=== PATIENT | male | born 1950 | race Caucasian/White ===

== ENCOUNTER → 2020-04-29 13:37 | Outpatient (BNVA) | payer OTHER, SELFPAY | PROVIDERS: PCP Nurse Practitioner Family; Visit Provider Anesthesiology | DX: Z76.89 Persons encountering health services in other specified circumstances (principal) ==

== ENCOUNTER → 2020-06-02 13:50 | Outpatient (BNVA) | payer OTHER, SELFPAY | PROVIDERS: PCP Nurse Practitioner Family; Visit Provider Anesthesiology | DX: Z76.89 Persons encountering health services in other specified circumstances (principal) ==

== ENCOUNTER → 2020-06-21 11:38 | Outpatient (BNVA) | payer OTHER, SELFPAY | PROVIDERS: PCP Internal Medicine; Visit Provider Anesthesiology | DX: Z76.89 Persons encountering health services in other specified circumstances (principal) ==

== ENCOUNTER → 2020-07-21 15:05 | Outpatient (BNVA) | payer OTHER, SELFPAY | PROVIDERS: PCP Internal Medicine; Visit Provider Anesthesiology | DX: Z76.89 Persons encountering health services in other specified circumstances (principal) ==

== ENCOUNTER → 2020-08-19 15:34 | Outpatient (BNVA) | payer OTHER, SELFPAY | PROVIDERS: PCP Internal Medicine; Visit Provider Anesthesiology ==

== ENCOUNTER → 2020-09-09 14:31 | Outpatient (BNVA) | payer OTHER, SELFPAY | PROVIDERS: PCP Internal Medicine; Visit Provider Anesthesiology ==

== ENCOUNTER → 2020-09-29 08:04 | Outpatient (BNVA) | payer OTHER, SELFPAY | PROVIDERS: PCP Internal Medicine; Visit Provider Anesthesiology ==

== ENCOUNTER → 2020-10-14 08:03 | Outpatient (BNVA) | payer OTHER, SELFPAY | PROVIDERS: PCP Internal Medicine; Visit Provider Anesthesiology ==

== ENCOUNTER → 2020-11-11 08:19 | Outpatient (BNVA) | payer OTHER, SELFPAY | PROVIDERS: PCP Internal Medicine; Visit Provider Anesthesiology ==

== ENCOUNTER → 2020-12-09 08:35 | Outpatient (BNVA) | payer OTHER, SELFPAY | PROVIDERS: PCP Internal Medicine; Visit Provider Anesthesiology ==

== ENCOUNTER → 2021-01-05 09:44 | Outpatient (BNVA) | payer OTHER, SELFPAY | PROVIDERS: PCP Internal Medicine; Visit Provider Nurse Practitioner Family ==

== ENCOUNTER → 2021-02-03 09:15 | Outpatient (BNVA) | payer OTHER, SELFPAY | PROVIDERS: PCP Internal Medicine; Visit Provider Anesthesiology ==

== ENCOUNTER → 2021-02-28 10:00 | Outpatient (BNVA) | payer OTHER, SELFPAY | PROVIDERS: PCP Internal Medicine; Visit Provider Anesthesiology ==

== ENCOUNTER → 2021-03-28 09:24 | Outpatient (BNVA) | payer OTHER, SELFPAY | PROVIDERS: PCP Internal Medicine; Visit Provider Anesthesiology ==

== ENCOUNTER → 2021-04-25 08:18 | Outpatient (BNVA) | payer OTHER, SELFPAY | PROVIDERS: PCP Internal Medicine; Visit Provider Anesthesiology ==

== ENCOUNTER → 2021-05-24 08:20 | Outpatient (BNVA) | payer OTHER, SELFPAY | PROVIDERS: PCP Internal Medicine; Visit Provider Anesthesiology ==

== ENCOUNTER → 2021-06-20 08:38 | Outpatient (BNVA) | payer OTHER, SELFPAY | PROVIDERS: PCP Internal Medicine; Visit Provider Anesthesiology ==

== ENCOUNTER → 2021-07-18 08:20 | Outpatient (BNVA) | payer OTHER, SELFPAY | PROVIDERS: PCP Internal Medicine; Visit Provider Anesthesiology ==

== ENCOUNTER → 2021-08-22 08:31 | Outpatient (BNVA) | payer OTHER, SELFPAY | PROVIDERS: PCP Internal Medicine; Visit Provider Anesthesiology ==

== ENCOUNTER → 2021-09-21 09:05 | Outpatient (BNVA) | payer OTHER, SELFPAY | PROVIDERS: PCP Internal Medicine; Visit Provider Anesthesiology ==

== ENCOUNTER → 2021-10-24 08:47 | Outpatient (BNVA) | payer OTHER, SELFPAY | PROVIDERS: PCP Internal Medicine; Visit Provider Anesthesiology | DX: M96.1 Postlaminectomy syndrome, not elsewhere classified (principal); G89.4 Chronic pain syndrome; F11.90 Opioid use, unspecified, uncomplicated | CPT/HCPCS: 99212 ==

== ENCOUNTER → 2021-11-15 09:18 | Outpatient (BNVA) | payer OTHER, SELFPAY | PROVIDERS: PCP Internal Medicine; Visit Provider Anesthesiology | DX: Z13.89 Encounter for screening for other disorder (principal) ==

== ENCOUNTER → 2021-12-14 10:04 | Outpatient (BNVA) | payer OTHER, SELFPAY | PROVIDERS: PCP Internal Medicine; Visit Provider Anesthesiology | DX: Z13.89 Encounter for screening for other disorder (principal) ==

== ENCOUNTER → 2022-01-11 09:52 | Outpatient (BNVA) | payer OTHER, SELFPAY | PROVIDERS: PCP Internal Medicine; Visit Provider Anesthesiology | DX: Z51.81 Encounter for therapeutic drug level monitoring (principal); F11.20 Opioid dependence, uncomplicated | CPT/HCPCS: 99211 ==

== ENCOUNTER 2022-01-13 10:00 | Outpatient (RCR) | payer OTHER, SELFPAY ==
[2021-11-01 07:00] VITALS: BP 138/82; PULSE 60; O2SAT 97
== END 2022-02-16 15:17 | disposition home or self-care (01) ==
LOC: HO.PTWFD 10:00
PROVIDERS: PCP Internal Medicine; Visit Provider Anesthesiology
DX: M72.2 Plantar fascial fibromatosis (principal); M96.1 Postlaminectomy syndrome, not elsewhere classified
CPT/HCPCS: 97035; 97110; 97140; 97161; 97162; 97535

== ENCOUNTER 2022-04-20 10:15 | Outpatient (REF) | payer OTHER, SELFPAY ==
--- NOTE | ~2022-04-20 | XR_ITS ---
EXAMINATION: XR LUMBAR SPINE XR PELVIS CLINICAL INFORMATION: Post laminectomy syndrome. Sacroiliitis. COMPARISON: None available TECHNIQUE: 5 views of the lumbar spine. AP radiograph of the pelvis. FINDINGS: Normal alignment and lumbar lordosis with ozwl-yf-jcdykbnl multilevel degenerative disc disease. Multilevel facet arthrosis. Disc space narrowing and facet arthropathy is most prominent at L5-S1. No fracture. No spondylolysis or spondylolisthesis. Moderate left and mild right hip osteoarthritis with narrowing and marginal osteophytes. The sacroiliac joints are unremarkable. No acute abnormality. XR/XR pelvis 1-2V IMPRESSION: 1. Csry-yc-tlfpgsor multilevel lumbar spondylosis with no acute abnormality. 2. Moderate left and mild right hip osteoarthritis. The sacroiliac joints are unremarkable.
--- NOTE | ~2022-04-20 | XR_ITS ---
EXAMINATION: XR LUMBAR SPINE XR PELVIS CLINICAL INFORMATION: Post laminectomy syndrome. Sacroiliitis. COMPARISON: None available TECHNIQUE: 5 views of the lumbar spine. AP radiograph of the pelvis. FINDINGS: Normal alignment and lumbar lordosis with lori-wy-follefdf multilevel degenerative disc disease. Multilevel facet arthrosis. Disc space narrowing and facet arthropathy is most prominent at L5-S1. No fracture. No spondylolysis or spondylolisthesis. Moderate left and mild right hip osteoarthritis with narrowing and marginal osteophytes. The sacroiliac joints are unremarkable. No acute abnormality. XR/XR lumbar spine 4V min IMPRESSION: 1. Jjpp-dz-tnbjxjnt multilevel lumbar spondylosis with no acute abnormality. 2. Moderate left and mild right hip osteoarthritis. The sacroiliac joints are unremarkable.
== END 2022-04-20 10:16 | disposition home or self-care (01) ==
LOC: HO.XRAY 10:15
PROVIDERS: PCP Internal Medicine; Visit Provider Anesthesiology
DX: M96.1 Postlaminectomy syndrome, not elsewhere classified (principal)
CPT/HCPCS: 72110; 72170

== ENCOUNTER 2022-07-18 06:12 | Outpatient (REF) | payer OTHER, SELFPAY ==
--- NOTE | ~2022-07-18 | FL_ITS ---
EXAMINATION: XR FLUOROSCOPY WITH IMAGES CLINICAL INFORMATION: Chronic pain syndrome COMPARISON: None. TECHNIQUE: Fluoroscopy Supervised By: Cindi Mahmood Fluoroscopy Time: 0.2 minutes. Cumulative Dose: 10.2 mGy. DAP: 2.8 Gycm2. Images: 1. FINDINGS: Single image demonstrates needle overlying the superior aspect of the hip joint and some contrast noted within the joint space. FL/FL guidance in treatment room IMPRESSION: Intraoperative fluoroscopy for pain management procedure.
== END 2022-07-18 06:13 | disposition home or self-care (01) ==
LOC: CF 06:12
PROVIDERS: Visit Provider Anesthesiology
DX: M16.12 Unilateral primary osteoarthritis, left hip (principal); M96.1 Postlaminectomy syndrome, not elsewhere classified; G89.4 Chronic pain syndrome; M46.1 Sacroiliitis, not elsewhere classified; M72.2 Plantar fascial fibromatosis
CPT/HCPCS: 20610; J2795; J3301

== ENCOUNTER → 2022-08-21 09:35 | Outpatient (BNVA) | payer OTHER, SELFPAY | PROVIDERS: PCP Internal Medicine; Visit Provider Anesthesiology | DX: Z13.89 Encounter for screening for other disorder (principal) ==

== ENCOUNTER 2022-09-19 07:01 | Outpatient (REF) | payer OTHER, SELFPAY ==
--- NOTE | ~2022-09-19 | FL_ITS ---
EXAMINATION: XR FLUOROSCOPY WITH IMAGES CLINICAL INFORMATION: M46.1 - Sacroiliitis, not elsewhere classified COMPARISON: Pelvic radiograph 04/20/2022 TECHNIQUE: Fluoroscopy Supervised By: Dr. Kamari Beck. Fluoroscopy Time: 0.1 minutes. Cumulative Dose: 4.45 mGy. DAP: 1.21 Gycm2. Images: 1. FINDINGS: Spinal needle overlies mid to lower left SI joint. There is contrast in the periarticular soft tissues with probable early intra-articular contrast. No vasculature communication appreciated. FL/FL guidance in treatment room IMPRESSION: Fluoroscopy for pain management procedure.
== END 2022-09-19 07:02 | disposition home or self-care (01) ==
LOC: CF 07:01
PROVIDERS: Visit Provider Anesthesiology
DX: M46.1 Sacroiliitis, not elsewhere classified (principal)
CPT/HCPCS: 27096

== ENCOUNTER → 2022-09-21 09:04 | Outpatient (BNVA) | payer OTHER, SELFPAY | PROVIDERS: PCP Internal Medicine; Visit Provider Anesthesiology | DX: Z13.89 Encounter for screening for other disorder (principal) ==

== ENCOUNTER 2022-10-17 06:28 | Outpatient (REF) | payer OTHER, SELFPAY ==
--- NOTE | ~2022-10-17 | FL_ITS ---
EXAMINATION: XR FLUOROSCOPY WITH IMAGES CLINICAL INFORMATION: M16.12 - Unilateral primary osteoarthritis, left hip COMPARISON: None available. TECHNIQUE: Fluoroscopy Supervised By: Dr. Kamari Beck. Fluoroscopy Time: 0.9 minutes. Cumulative Dose: 58.1 mGy. DAP: 15.8 Gycm2. Images: 1. FINDINGS: Spinal needle overlies lower left SI joint. There is contrast in the periarticular soft tissues with probable early intra-articular contrast. No vasculature communication appreciated. FL/FL guidance in treatment room IMPRESSION: Fluoroscopy for pain management procedure.
== END 2022-10-17 06:29 | disposition home or self-care (01) ==
LOC: CF 06:28
PROVIDERS: Visit Provider Anesthesiology
DX: M16.12 Unilateral primary osteoarthritis, left hip (principal); M46.1 Sacroiliitis, not elsewhere classified
CPT/HCPCS: 27096

== ENCOUNTER → 2022-11-15 09:31 | Outpatient (BNVA) | payer OTHER, SELFPAY | PROVIDERS: PCP Internal Medicine; Visit Provider Anesthesiology | DX: Z13.89 Encounter for screening for other disorder (principal) ==

== ENCOUNTER → 2023-01-25 07:51 | Outpatient (BNVA) | payer OTHER, SELFPAY | PROVIDERS: PCP Internal Medicine; Visit Provider Psychiatry & Neurology Neurology ==

== ENCOUNTER 2023-04-20 10:51 | Outpatient (REF) | payer OTHER, SELFPAY ==
--- NOTE | ~2023-04-20 | MR_ITS ---
EXAMINATION: MR BRAIN WITHOUT CONTRAST CLINICAL INFORMATION: Memory issues COMPARISON: None. TECHNIQUE: MRI of the brain was obtained using routine sequences without contrast. FINDINGS: No acute infarct. No acute intracranial hemorrhage or extra-axial fluid collection. Moderate global cerebral volume loss without lobar predilection somewhat disproportionate ventriculomegaly relative to sulcal prominence and suggestion of carotid sulci near the vertex though without acute callosal angle though can BE correlated clinically for the possibility of superimposed communicating hydrocephalus. The corpus callosum is slightly bowed superiorly. Patchy T2 FLAIR hyperintense foci in the subcortical and periventricular white matter, nonspecific but presumably mild chronic microangiopathy. No mass lesion, mass effect, or herniation pattern. Normal intracranial arterial and dural venous sinus flow voids. Normal appearance of the midline structures. The orbits are grossly unremarkable. 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 Mild scattered paranasal sinus mucosal disease. No mastoid effusion. Incompletely imaged cervical spondylosis including advanced hypertrophic right C3-C4 facet arthropathy. MR/MR head/brain wo con IMPRESSION: Moderate global cerebral volume loss without lobar predilection. Somewhat disproportionate ventriculomegaly relative to sulcal prominence and suggestion of crowded sulci near the vertex though without acute callosal angle however can be correlated clinically for superimposed communicating hydrocephalus. Presumed mild chronic microangiopathic changes.
== END 2023-04-20 10:52 | disposition home or self-care (01) ==
LOC: HO.MRI 10:51
PROVIDERS: PCP Internal Medicine; Visit Provider Psychiatry & Neurology Neurology
DX: F09 Unspecified mental disorder due to known physiological condition (principal); G47.33 Obstructive sleep apnea (adult) (pediatric)
CPT/HCPCS: 70551

== ENCOUNTER → 2023-05-29 08:52 | Outpatient (REF) | payer OTHER, SELFPAY | LOC: HO.SL 08:52 | PROVIDERS: PCP Internal Medicine; Visit Provider Psychiatry & Neurology Neurology | DX: G47.00 Insomnia, unspecified (principal); R06.83 Snoring | CPT/HCPCS: 95806 ==

== ENCOUNTER → 2023-05-29 09:09 | Outpatient (BNV) | payer OTHER, SELFPAY | PROVIDERS: PCP Internal Medicine; Visit Provider Psychiatry & Neurology Neurology | DX: R06.83 Snoring (principal); G47.00 Insomnia, unspecified | CPT/HCPCS: 95806 ==

== ENCOUNTER 2023-06-14 07:57 | Outpatient (AMB) | payer OTHER, SELFPAY ==
--- NOTE | 2023-06-14 08:04 | A.OFFVIS_ITS ---
Intake Vital Signs 06/14/23 08:05 Height 5 ft 10 in Weight 275 lb BMI 39.5 BP 122/78 Blood Pressure Location Rt brachial Position Sitting Respiration 16 Pulse 64 Pulse Source Pulse Oximeter Pulse Oximetry (%) 96 Oxygen Delivery Method Room Air Intake Visit Reasons: 3m f/u Memory Changes/Loss - Conf Intake Note: Pt presents to the office for a 3 month follow up for memory changes. Pt reports he's the same since his last visit. [employer] Sales[employer] Required: No Allergies No Known Allergies Allergy (Verified 06/14/23 08:05) Medication List - Last Reconciled 06/14/23 by Yisel Aceves MD apixaban 5 mg PO BID atorvastatin 40 mg PO DAILY escitalopram oxalate 40 mg PO furosemide 20 mg PO DAILY gabapentin 300 mg PO BEDTIME 30 days lisinopril 10 mg PO DAILY trazodone 50 mg PO DAILY HPI HPI Comments History of Present Illness Details 73y/o male comes for follow up of memory issues. His MRI brain showed global volume loss and ventriculomegaly He denies urinary incontinence but has increased frequency and urgency . He feels there is mild worsening since last visit. He has trouble with conversations. He started noticing minor issues with short term memory issues about 2-3 years.He forgets peoples names, goes to a room and has no clue why he went there, forgets conversations, forgets to takes medications sometimes etc. He frequently forgets conversations , word finding difficulties . 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 No personality or behavior changes. He has h/o anxiety. No h/o head injury. No fh/o dementia. He used to be on clonazepam and oxycodone - 4 years ago he was tapered off clonazepam quickly and his anxiety significantly worsened.His feels his memory issues worsened since then He has trouble with sleep, diagnosed with sleep apnea and is on CPAP. [facility] Medical History (Updated 06/14/23 @ 08:27 by Yisel Aceves MD) Cerebral ventriculomegaly Difficulty with CPAP nasal mask use Insomnia Snoring Cognitive disorder Hyperlipidemia Obstructive sleep apnea HTN (hypertension) Sick sinus syndrome Atrial fibrillation Anxiety Pacemaker Bilateral plantar fasciitis Surgical History History of lumbar laminectomy for spinal cord decompression History of tonsillectomy History of bilateral knee replacement Family History Father Hypertension Mother Hypertension Breast cancer Sister Hypertension Brother Hypertension Brother Hypertension Brother Hypertension Social History Alcohol intake: current Alcohol intake frequency: holidays/special occasions only Patient Tobacco Use Status: Former Tobacco user Substance Use Type: Marijuana Physical Exam Vital Signs: Last Vital Signs Pulse 64 06/14/23 08:05 Resp 16 06/14/23 08:05 BP 122/78 06/14/23 08:05 Pulse Ox 96 06/14/23 08:05 Oxygen Delivery Method Room Air 06/14/23 08:05 BMI result Body Mass Index 39.5 Const General: cooperative and anxious Nutritional Appearance: obese Orientation/consciousness: oriented to person and oriented to place Eyes Pupils: Equal, round and reactive pupils present Neuro General: oriented to person, oriented to place, tone normal, moves all extremities and no focal motor deficits Cranial nerves: Yes Equal, round and reactive pupils present, Yes Bilaterally intact EOM present, Yes Nystagmus not present, Yes Normal facial strength present and Yes Midline tongue present Cognition (Neuro): normal cognition Gait exam (Neuro): Antalgic gait present Motor exam (neuro): 5/5 motor strength present throughout and Normal motor muscle tone present throughout Coordination: aypojv-zs-tjmq test normal Psych Affect: Anxious affect present Orientation What is the (year) (season) (date) (day) (month)?: year, season, date, day and month Where are we (state) (county) (town or city) (hospital) (floor)?: state, county, town or city, hospital/clinic and floor Registration Name of 3 unrelated objects clearly and slowly, then ask patient to repeat all 3 of them. (1st repeat determines score. Make sure they can repeat all three): object 1, object 2 and object 3 Attention & Calculation (CHOOSE ONE) Spell WORLD backwards (DLROW): 1 letter Recall Ask patient to repeat the 3 items from question #3.: object 1 and object 2 Language Show patient a wristwatch & ask what it is. Repeat for pencil.: watch and pencil Ask the patient to repeat the phrase 'No ifs, ands, or buts' after you.: correct Ask the patient to 'take a piece of paper with their right hand' 'fold paper in half' 'place paper on floor': take paper in right hand, fold paper in half and place paper on floor Print the sentence 'CLOSE YOUR EYES' on a piece. If patient actually closes eyes then score.: followed written direction Give patient a blank piece of paper & ask to write a sentence. Score if it contains a noun & verb.: sentence contains subject and verb Ask patient to copy figure of intersecting pentagons exactly. Score if all 10 angles & 2 intersects are included.: all 10 angles present & 2 are intersected Score Score: 25 Assessment & Plan Assessment & Plan (1) Cognitive disorder: Code(s): F09 - Unspecified mental disorder due to known physiological condition (2) Insomnia: Code(s): G47.00 - Insomnia, unspecified (3) Difficulty with CPAP nasal mask use: Code(s): Z78.9 - Other specified health status Plan MRI brain results discussed - will get an opinion from Neurosurgery . continue lexapro 40mg qd Psychotherapy Cognitive therapy Increase physical activity In lab sleep study to revaluate his sleep apnea . Orders: Referrals Speech and Hearing Referral F09 - Unspecified mental disorder due to known physiological condition Neurosurgery Referral G93.89 - Other specified disorders of brain Medications: Changed From gabapentin 300 mg PO TID 30 days 90 caps 12RF To gabapentin 300 mg PO BEDTIME 30 caps 12RF 30 days Coding Level of Care Code Est Pt Level 4 (51314) Diagnoses Cognitive disorder F09 Insomnia G47.00 Difficulty with CPAP nasal mask use Z78.9
[2023-06-14 08:05] VITALS: BP 122/78; PULSE 64; RESP 16; O2SAT 96; BMI 39.5
== END 2023-06-14 08:35 | disposition home or self-care (01) ==
PROVIDERS: PCP Internal Medicine; Visit Provider Psychiatry & Neurology Neurology
DX: G31.84 Mild cognitive impairment of uncertain or unknown etiology (principal); G47.00 Insomnia, unspecified; Z78.9 Other specified health status
CPT/HCPCS: 99214

== ENCOUNTER → 2023-06-14 07:57 | Outpatient (BNVA) | payer OTHER, SELFPAY | PROVIDERS: PCP Internal Medicine; Visit Provider Psychiatry & Neurology Neurology | DX: F09 Unspecified mental disorder due to known physiological condition (principal); G47.33 Obstructive sleep apnea (adult) (pediatric); R06.83 Snoring; G47.00 Insomnia, unspecified; I48.91 Unspecified atrial fibrillation; Z78.9 Other specified health status ==

== ENCOUNTER 2023-07-02 08:51 | Outpatient (AMB) | payer OTHER, SELFPAY ==
--- NOTE | 2023-07-02 08:52 | MHC.OFFVIS ---
Intake Vital Signs 07/02/23 08:57 Height 5 ft 10 in Weight 275 lb BMI 39.5 BP 118/66 Blood Pressure Location Lt brachial Position Sitting Respiration 16 Pulse 75 Pulse Source Pulse Oximeter Pulse Oximetry (%) 95 Oxygen Delivery Method Room Air Intake Visit Reasons: Injection Discussion/confirmed Allergies No Known Allergies Allergy (Verified 07/02/23 08:58) HPI HPI Comments History of Present Illness Details Angel is back in my office to discuss future plans for the injections. I offered him diagnostic left sacroiliac joint innervation injection. This procedure will be done under moderate sedation. It will be done in the operating room. I will schedule him accordingly. If the results of the injection of diagnostic left sacroiliac joint innervation injection will be encouraging I will send him to psychological evaluation with at [facility] in preparation for left SI joint innervation stimulation by [employer]. Currently primary care physician sent him for MRI of the brain which demonstrated enlarged lateral cisterns. He exhibits signs of the forgetfulness and difficulty with mental tasks. He was sent for the surgical evaluation in the order to potentially consider ENERGY EFFICIENCY SPECIALIST shunt. 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 Prior: left therapeutic sacroiliac joint injection in September of 2022. He reports pain before the injection is 5 to 6/10. He reports pain after the injection is 1 to 2/10. During the injection I encountered significant difficulty with placing my needle into the sacroiliac joint. Angel is under observation in this office for postlaminectomy syndrome.? He is no longer on chronic opioid therapy in this office.? He was suspended in our opioid program for refusal to show up for UDS.? He is suspended until December of 2022. He went for left diagnostic sacroiliac joint injection and reported 90% pain improvement for the 1st 5 hours after the procedure.? He actually reported good pain relieve until next morning after the procedure.? After that pain slowly started to come back.? Considering his age I gave him options of therapeutic sacroiliac joint injection versus PNS of the sacroiliac joint innervation on the left.? The patient chose to go for therapeutic SI joint injection.? I warned him that the therapeutic injections may decrease its effectiveness with time and repeatition.? The patient nevertheless wanted to do the injection.? PNS was carefully explained to the patient as well. He was sent for hip x-ray and lumbar spine x-ray and results are dictated as below.? I performed for him left hip injection and he reports only few days of pain improvement.? He reports that in the past he received left sacroiliac joint injection with [facility].? I offered him to try to repeat this injection diagnostically in the order to possibly diagnose his sacroiliac joint pain.? It may open?up some avenues? to treat his chronic pain . lower back pain without radiations? also pain in bilateral knees which is separate from the back pain. his back pain is associated with numbness on lateral lower legs below the level of the knees. numbness in constant, does not change. Onset in 1989 after fall trauma.? History of 2 back surgeries in 1900 and 2005. laminectomies of L4-L5 and L5-S1 . He had 3 knee operations and 2 total knee replacements to address his pain. ?[facility] : multiple cortisone injections done without any success. They insisted to continue those injections. ? ? On x-ray: ?14 degree dextroscoliosis within effects at L3 intervertebral disc space narrowing is most prominently seen at L5-S1 with 80% disc space elimination relative to the cephalad levels. T12-L1 appears to have considerable degree of disc space narrowing no fracture or tumor no hardware. He had MRI 5 years ago at [facility]. [facility] Medical History (Updated 06/14/23 @ 08:27 by Yisel Aceves MD) Cerebral ventriculomegaly Difficulty with CPAP nasal mask use Insomnia Snoring Cognitive disorder Hyperlipidemia Obstructive sleep apnea HTN (hypertension) Sick sinus syndrome Atrial fibrillation Anxiety Pacemaker Bilateral plantar fasciitis Surgical History History of lumbar laminectomy for spinal cord decompression History of tonsillectomy History of bilateral knee replacement Family History Father Hypertension Mother Hypertension Breast cancer Sister Hypertension Brother Hypertension Brother Hypertension Brother Hypertension Social History Alcohol intake: current Alcohol intake frequency: holidays/special occasions only Patient Tobacco Use Status: Former Tobacco user Substance Use Type: Marijuana Review of Systems Const All systems reviewed & are unremarkable except as noted in HPI and below Physical Exam Vital Signs: Last Vital Signs Pulse 75 07/02/23 08:57 Resp 16 07/02/23 08:57 BP 118/66 07/02/23 08:57 Pulse Ox 95 07/02/23 08:57 Oxygen Delivery Method Room Air 07/02/23 08:57 BMI result Body Mass Index 39.5 Const General: cooperative, healthy appearing, comfortable, no acute distress, alert and well groomed Nutritional Appearance: obese Orientation/consciousness: patient oriented x3 HEENT Head: Yes normocephalic and Yes atraumatic Ears: hearing grossly normal bilaterally Eyes General: appearance normal, both eyes and all related structures Eyelids: Yes eyelids normal Pupils: Equal, round and reactive pupils present EOM: EOMs intact bilaterally Neck Neck: Yes normal visual inspection and Yes no JVD Resp Effort & Inspection: normal respiratory effort, able to speak in complete sentences and no audible wheezes Cardio Jugular venous distension: no JVD Back/Spine/Pelvis Other: Tenderness on palpation on the projection of the left sacroiliac joint. On the left Positive Gaenslen test positive Rangel test positive pelvis compression test and negative pelvis destruction test. Neuro General: patient oriented x3, gait normal and moves all extremities Cranial nerves: Yes Equal, round and reactive pupils present Psych Appearance: grossly normal Mental Status: mental status grossly normal Speech and movement: Normal speech and movement present Assessment & Plan Assessment & Plan (1) Postlaminectomy syndrome: Code(s): M96.1 - Postlaminectomy syndrome, not elsewhere classified (2) Chronic pain syndrome: Code(s): G89.4 - Chronic pain syndrome (3) Chronic, continuous use of opioids: Code(s): F11.90 - Opioid use, unspecified, uncomplicated (4) Sacroiliitis: Code(s): M46.1 - Sacroiliitis, not elsewhere classified (5) Bilateral plantar fasciitis: Code(s): M72.2 - Plantar fascial fibromatosis (6) Neuropathy of both feet: Code(s): G57.93 - Unspecified mononeuropathy of bilateral lower limbs (7) Mononeuropathy, unspecified: Code(s): G58.9 - Mononeuropathy, unspecified Plan The patient will be scheduled for diagnostic left sacroiliac joint innervation injection under sedation. After that patient will be evaluated in terms of pain relief. If pain relieve will deemed be demonstrated for the significant amount of time in the significant proportion SI joint innervation on the left with cure a Nicks be considered. In the order to prepare him for the trial the patient will be sent for psychological evaluation. Coding Level of Care Code Est Pt Level 4 (11705) Diagnoses Postlaminectomy syndrome M96.1 Chronic pain syndrome G89.4 Chronic, continuous use of opioids F11.90 Sacroiliitis M46.1 Bilateral plantar fasciitis M72.2 Neuropathy of both feet G57.93 Mononeuropathy, unspecified G58.9
[2023-07-02 08:57] VITALS: BP 118/66; PULSE 75; RESP 16; O2SAT 95; BMI 39.5
== END 2023-07-02 09:13 | disposition home or self-care (01) ==
PROVIDERS: PCP Internal Medicine; Visit Provider Anesthesiology
DX: G89.4 Chronic pain syndrome (principal); M96.1 Postlaminectomy syndrome, not elsewhere classified; M46.1 Sacroiliitis, not elsewhere classified
CPT/HCPCS: 99214

== ENCOUNTER → 2023-07-02 08:51 | Outpatient (BNVA) | payer OTHER, SELFPAY | PROVIDERS: PCP Internal Medicine; Visit Provider Anesthesiology ==

== ENCOUNTER 2023-07-13 07:20 | Day surgery (SDC) | payer OTHER, SELFPAY ==
[2023-07-11 11:22] VITALS: BMI 39.5
--- NOTE | 2023-07-12 09:46 | HO.ANESPROP2 ---
Documented by User: Julianne Claros NP 07/12/23 12:29 HPI - Anesthesia Eval Consult details Narrative: 73yo M for Diagnostic Sacroiliac Joint Innervation Injection Follows [facility] cardiology. Last office eval 03/2023. Denies any cardiac symptoms and stable for 1 year f/u Pacer in situ (SSS) - implanted 2018 Eliquis for Afib - ok to hold 48h per cardiology [facility] Active Problems Active Problems: All Active Problems (Updated 06/14/23 @ 08:27 by Yisel Aceves MD) Arthritis of left hip (Acute) Mononeuropathy, unspecified (Acute) Sacroiliitis (Acute) Neuropathy of both feet (Acute) Chronic, continuous use of opioids (Acute) Chronic pain syndrome (Acute) Postlaminectomy syndrome (Acute) Cerebral ventriculomegaly (Acute) Difficulty with CPAP nasal mask use (Acute) Insomnia (Acute) Snoring (Acute) Cognitive disorder (Acute) Hyperlipidemia (Acute) Obstructive sleep apnea (Acute) HTN (hypertension) (Acute) Sick sinus syndrome (Acute) Atrial fibrillation (Acute) Anxiety (Acute) Bilateral plantar fasciitis (Acute) Past Medical History Medical History Cerebral ventriculomegaly Difficulty with CPAP nasal mask use Insomnia Snoring Cognitive disorder Hyperlipidemia Obstructive sleep apnea HTN (hypertension) Sick sinus syndrome Atrial fibrillation Anxiety Pacemaker Bilateral plantar fasciitis Family History Family History Father Hypertension Mother Hypertension Breast cancer Sister Hypertension Brother Hypertension Brother Hypertension Brother Hypertension Surgical History Surgical History History of permanent cardiac pacemaker placement History of lumbar laminectomy for spinal cord decompression History of tonsillectomy History of bilateral knee replacement Social History Social History Alcohol intake: current Alcohol intake frequency: holidays/special occasions only Patient Tobacco Use Status: Former Tobacco user Use of substances other than those prescribed or required for medical reasons: No Substance Use Type: Marijuana Advance Directives: No Advance Directives Information Provided: Yes Meds Allergies Allergy/AdvReac Type Severity Reaction Status Date / Time No Known Allergies Allergy Verified 07/02/23 08:58 Home Medications Medication Instructions Recorded Confirmed Last Taken Type apixaban 5 mg tablet 5 mg PO BID 04/26/20 07/13/23 07/11/23 History atorvastatin 40 mg tablet 40 mg PO DAILY 04/26/20 07/13/23 07/12/23 History lisinopril 10 mg tablet 10 mg PO DAILY 04/26/20 07/13/23 07/12/23 History trazodone 50 mg tablet 50 mg PO DAILY 04/26/20 07/13/23 07/12/23 History furosemide 20 mg tablet 20 mg PO DAILY 01/05/21 07/13/23 07/12/23 History escitalopram oxalate 20 mg tablet 40 mg PO DAILY 01/25/23 07/13/23 07/12/23 History Exam Height,Weight and Vital Signs: Height 5 ft 10 in Weight 124.738 kg Narrative Narrative: EKG 03/2023 SR at 63bmp without any ST segment deviation or pathologic Q waves Pacer interr 02/2023 Nml lead and device function. Battery longevity is 60% remaining. AP 67%. [employer] 16%. AT/AF burden is 0% and 3 AMS episodes. No HVR recorded. Assessment and Plan Assessment Anesthesia Assessment: Chart Reviewed Documented by User: Tesha Garcia MD 07/13/23 08:54 [facility] Active Problems Active Problems: All Active Problems (Updated 07/13/23 @ 08:38 by Tesha Garcia MD) Arthritis of left hip (Acute) Mononeuropathy, unspecified (Acute) Sacroiliitis (Acute) Neuropathy of both feet (Acute) Chronic, continuous use of opioids (Acute) Chronic pain syndrome (Acute) Postlaminectomy syndrome (Acute) Cerebral ventriculomegaly (Acute). Insomnia (Acute) Snoring (Acute) Cognitive disorder (Acute) Hyperlipidemia (Acute) Obstructive sleep apnea (Acute). Uses CPAP machine HTN (hypertension) (Acute) Sick sinus syndrome (Acute). Pacemaker since 2018. Last checked a couple of months ago. Denies CP, dizziness, faintness, SOB Atrial fibrillation (Acute) Anxiety (Acute) Bilateral plantar fasciitis (Acute) Increased BMI 39.7 Past Medical History Medical History Cerebral ventriculomegaly Difficulty with CPAP nasal mask use Insomnia Snoring Cognitive disorder Hyperlipidemia Obstructive sleep apnea HTN (hypertension) Sick sinus syndrome Atrial fibrillation Anxiety Pacemaker Bilateral plantar fasciitis Family History Family History Father Hypertension Mother Hypertension Breast cancer Sister Hypertension Brother Hypertension Brother Hypertension Brother Hypertension Family history of problems with anesthesia: No Surgical History Surgical History History of permanent cardiac pacemaker placement History of lumbar laminectomy for spinal cord decompression History of tonsillectomy History of bilateral knee replacement History of Problems with Anesthesia: No Social History Social History Alcohol intake: current Alcohol intake frequency: holidays/special occasions only Patient Tobacco Use Status: Former Tobacco user Use of substances other than those prescribed or required for medical reasons: No Substance Use Type: Marijuana Advance Directives: No Advance Directives Information Provided: Yes Meds Allergies Allergy/AdvReac Type Severity Reaction Status Date / Time No Known Allergies Allergy Verified 07/02/23 08:58 Home Medications Medication Instructions Recorded Confirmed Last Taken Type apixaban 5 mg tablet 5 mg PO BID 04/26/20 07/13/23 07/11/23 History atorvastatin 40 mg tablet 40 mg PO DAILY 04/26/20 07/13/23 07/12/23 History lisinopril 10 mg tablet 10 mg PO DAILY 04/26/20 07/13/23 07/12/23 History trazodone 50 mg tablet 50 mg PO DAILY 04/26/20 07/13/23 07/12/23 History furosemide 20 mg tablet 20 mg PO DAILY 01/05/21 07/13/23 07/12/23 History escitalopram oxalate 20 mg tablet 40 mg PO DAILY 01/25/23 07/13/23 07/12/23 History Exam Height,Weight and Vital Signs: Height 5 ft 10 in Weight 124.738 kg Vital Signs Temp Pulse Resp BP Pulse Ox O2 Del Method 07/13/23 08:02 97.3 F 64 16 132/74 95 Room Air Airway Mallampati Class: III TM Dist: >3cm Neck ROM: Full Loose/Missing/Broken Teeth: Yes (Denies broken, loose, missing teeth) Heart: Irregularly irregular Lungs: CTAB Assessment and Plan Assessment Anesthesia Assessment: Anesthesia Plan Discussed Final Anesthetic Review Family History of Problems with Anesthesia: No History of Problems with Anesthesia: No NPO: Yes ASA Class: III Final Preanesthetic Review: No Changes in Pt Med Stat, Meds/Allgs Chart Reviewed, Consent Obtained/Reviewed and Anes Risks/Benef Reviewed Patient Risk: Intermediate Procedure Risk: Low Assessment/Block/Sedation in SS: Assess/Block/Sedation-SS Anesthetic Plan Anesthetic Plan: MAC: Disposition: Standard PACU
--- NOTE | ~2023-07-13 | FL_ITS ---
EXAMINATION: XR FLUOROSCOPY WITH IMAGES CLINICAL INFORMATION: Left SI joint injection. COMPARISON: None available. TECHNIQUE: Fluoroscopy Supervised By: Dr. Kamari Beck. Fluoroscopy Time: 0.4 minutes. Cumulative Dose: 11.4 mGy. DAP: 3.11 Gycm2. Images: 5. FINDINGS: Images demonstrate needle placement and contrast injection over the left sacrum. FL/FL guidance in OR IMPRESSION: Fluoroscopic guidance for pain management procedure.
[2023-07-13 07:35] VITALS: BMI 39.7
--- NOTE | 2023-07-13 07:47 | P.HPSUR_ITS ---
Pre-Procedural Eval Section A Date of Service: 07/13/23 The patient is an INPATIENT: No Changes since office visit: Yes Patient answered all questions The History & Physical has been completed within 30 days and I have reviewed it.: No Section B Chief Complaint: Sacroiliitis, not elsewhere classified Details of Present Illness: as above Relevant Family History (Specify if Yes): No Relevant Social History: Other (specify) Present Medications: None Medical History: No relevant PMH History of Previous Operations: No relevant previous surgery Allergies: Allergies Allergy/AdvReac Type Severity Reaction Status Date / Time No Known Allergies Allergy Verified 07/02/23 08:58 Review of Systems Sugical H&P ROS: Negative: Constitution, Psychiatric, Hem-Onc, Allergi c/Immunologic, Gastrointestinal, Genitourinary, Integumentary, Endocrine and Eyes/Ears/Nose/Throat and Yes, Specify: Cardiovascular (HTN, afib), Respiratory (YUMIKO), Neurological (cerebral ventriculomegaly) and Musculoskeletal (osteoarthritis, sacroiliitis.) Exam Surgical H&P Exam: Normal: HEENT, Normal: Heart, Normal: Lungs, Normal: Extremities, Normal: Abdomen, Normal: Skin and Normal: Neurological Plan Diagnosis/Plan: Unchanged I have reviewed the history and physical and performed a pertinent physical examination on my patient. No changes have occurred unless specified. Time Spent With Patient Time: Total time managing care of this patient today ____ minutes.
[2023-07-13 08:02] VITALS: BP 132/74; PULSE 64; RESP 16; TEMP 36.3; O2SAT 95
[2023-07-13] MEDS: Lactated Ringers 1,000 ML 100 ML IVCONT (08:03)
[2023-07-13 09:49] VITALS: BP 99/66; PULSE 63; RESP 18; TEMP 36.4; O2SAT 96
--- NOTE | 2023-07-13 09:53 | P.BOP_ITS ---
Brief Operative Note Date of Service: 07/13/23 Pre-op diagnosis: sacroiliitis Post-op diagnosis: same Procedure: diagnostic sacroiliac joint innervation injection palisade procedure. Surgeon: Kamari Beck MD Anesthesia: MAC Was an Phlebotomy Services Representative used for this Procedure?: No Estimated blood loss (mL): 1 Condition: stable Disposition: PACU
--- NOTE | 2023-07-13 09:54 | P.OP_ITS ---
Operative Note Operative Note Date of Service: 07/13/23 Narrative: Sacroiliac joint innervation injection diagnostic on the right. Patient came to the operating room after informed consent was thoroughly explained to the patient delineating risks and benefits of the procedure inclu ding bleeding infection peripheral nerve damage and some other non specified risks.The patient was positioned prone on the operating table with pillow under his belly. [place] [employer] monitors were applied patient was deeply sedated. Time-out was performed delineating correct side inside the procedure name and of the patient need for DVT prophylaxis, need for antibiotics which is none and risk of fire which was minimal. The lower back of the patient and left upper buttock were prepped with ChloraPrep and draped with self height uses sterile utility towels. C-arm was brought of the operating field and sq picture of patient's pelvis and sacroiliac joint were delineated On the screen. the point of interest were delineated as: point A the connection of the superior articular process of S1 on the left with sacral alae as well as the lowest point of sacroiliac joint on the medial side at the sacral bone position point B, as well as points 1 cm up apart between the point A end point B in linear palisade fashion. Total of 10 injection sites were planned. The projection of the point of interest to the skin was injected with mixture of lidocaine 2% and ropivacaine 0.5% 1-1 total injectate 9 cc and after that 4 22 gauge 3-1/2 inch needles were used to reach the points of interest sequentially in palisade fashion as described above. When needles gently contacted the bone injection of the contrast was performed delineating no intravascular spread of the contrast. After that injection of the less than 1 cc of Ropivacaine 0.5% into each needle position was performed. Upon completion of all the injections the needles were removed sterile Band-Aids were applied. The patient tolerated procedure well, he was taking outside of the operating room to recovery room where he recovered uneventfully. Pain diary will be given to the patient for the follow-up.
[2023-07-13 10:04] VITALS: BP 123/75; PULSE 58; RESP 16; TEMP 36.6; O2SAT 95
== END 2023-07-13 10:45 | disposition home or self-care (01) ==
PROVIDERS: PCP Internal Medicine; Visit Provider Anesthesiology
PROC: (CPT 64451; principal; 2023-07-13 09:00)
DX: M46.1 Sacroiliitis, not elsewhere classified (principal); M96.1 Postlaminectomy syndrome, not elsewhere classified; G89.4 Chronic pain syndrome; M72.2 Plantar fascial fibromatosis; G57.93 Unspecified mononeuropathy of bilateral lower limbs; I10 Essential (primary) hypertension; I48.91 Unspecified atrial fibrillation; I49.5 Sick sinus syndrome; G93.89 Other specified disorders of brain; G47.33 Obstructive sleep apnea (adult) (pediatric); E78.5 Hyperlipidemia, unspecified; Z95.0 Presence of cardiac pacemaker; F11.90 Opioid use, unspecified, uncomplicated; Z99.89 Dependence on other enabling machines and devices; Z98.890 Other specified postprocedural states; Z87.891 Personal history of nicotine dependence; F12.90 Cannabis use, unspecified, uncomplicated
CPT/HCPCS: 64451; J2704; J2795; Q9967

== ENCOUNTER → 2023-07-13 07:20 | Outpatient (BNV) | payer OTHER, SELFPAY | PROVIDERS: PCP Internal Medicine; Visit Provider Anesthesiology | DX: M46.1 Sacroiliitis, not elsewhere classified (principal) | CPT/HCPCS: 64451 ==

== ENCOUNTER 2023-07-16 08:50 | Outpatient (AMB) | payer OTHER, SELFPAY ==
--- NOTE | 2023-07-16 08:52 | A.OFFVIS_ITS ---
Intake Vital Signs 07/16/23 09:01 Height 5 ft 10 in Weight 279 lb BMI 40.0 BP 114/70 Blood Pressure Location Lt brachial Position Sitting Respiration 17 Pulse 70 Pulse Source Pulse Oximeter Pulse Oximetry (%) 97 Oxygen Delivery Method Room Air Intake Visit Reasons: S/p (L) Dx SI Joint Innervation Inj 07/13/23/con Allergies No Known Allergies Allergy (Verified 07/16/23 09:02) HPI HPI Comments History of Present Illness Details Angel is back in my office to discuss the results of the injection. On 07/12/2023 he went for diagnostic sacroiliac joint innervation injection for the left joint. He reported today 8 hours of complete pain relief. He reported better mobility, better social interactions, better activities of daily living. He still enjoys pain 2/10 to 1/10 3 days after injection.PNS Curonix this discussed again. He needs to go for psych evaluation. He will be provided telephone number of psychologist and means of the registration on left side with [facility]. MRI of the brain which demonstrated enlarged lateral cisterns. He exhibits signs of the forgetfulness and difficulty with mental tasks. He was sent for the surgical evaluation in the order to potentially consider [employer] shunt. 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 Prior: left therapeutic sacroiliac joint injection in September of 2022. He reports pain before the injection is 5 to 6/10. He reports pain after the injection is 1 to 2/10. During the injection I encountered significant difficulty with placing my needle into the sacroiliac joint. Angel is under observation in this office for postlaminectomy syndrome.? He is no longer on chronic opioid therapy in this office.? He was suspended in our opioid program for refusal to show up for UDS.? He is suspended until December of 2022. He went for left diagnostic sacroiliac joint injection and reported 90% pain improvement for the 1st 5 hours after the procedure.? He actually reported good pain relieve until next morning after the procedure.? After that pain slowly started to come back.? Considering his age I gave him options of therapeutic sacroiliac joint injection versus PNS of the sacroiliac joint innervation on the left.? The patient chose to go for therapeutic SI joint injection.? I warned him that the therapeutic injections may decrease its effectiveness with time and repeatition.? The patient nevertheless wanted to do the injection.? PNS was carefully explained to the patient as well. He was sent for hip x-ray and lumbar spine x-ray and results are dictated as below.? I performed for him left hip injection and he reports only few days of pain improvement.? He reports that in the past he received left sacroiliac joint injection with [facility].? I offered him to try to repeat this injection diagnostically in the order to possibly diagnose his sacroiliac joint pain.? It may open?up some avenues? to treat his chronic pain . lower back pain without radiations? also pain in bilateral knees which is separate from the back pain. his back pain is associated with numbness on lateral lower legs below the level of the knees. numbness in constant, does not change. Onset in 1989 after fall trauma.? History of 2 back surgeries in 190 and 2005. laminectomies of L4-L5 and L5-S1 . He had 3 knee operations and 2 total knee replacements to address his pain. ?[facility] : multiple cortisone injections done without any success. They insisted to continue those injections. ? ? On x-ray: ?14 degree dextroscoliosis within effects at L3 intervertebral disc space narrowing is most prominently seen at L5-S1 with 80% disc space elimination relative to the cephalad levels. T12-L1 appears to have considerable degree of disc space narrowing no fracture or tumor no hardware. He had MRI 5 years ago at [facility]. [facility] Medical History Cerebral ventriculomegaly Difficulty with CPAP nasal mask use Insomnia Snoring Cognitive disorder Hyperlipidemia Obstructive sleep apnea HTN (hypertension) Sick sinus syndrome Atrial fibrillation Anxiety Pacemaker Bilateral plantar fasciitis Surgical History History of permanent cardiac pacemaker placement History of lumbar laminectomy for spinal cord decompression History of tonsillectomy History of bilateral knee replacement Family History Father Hypertension Mother Hypertension Breast cancer Sister Hypertension Brother Hypertension Brother Hypertension Brother Hypertension Social History Alcohol intake: current Alcohol intake frequency: holidays/special occasions only Patient Tobacco Use Status: Former Tobacco user Substance Use Type: Marijuana Review of Systems Const All systems reviewed & are unremarkable except as noted in HPI and below Physical Exam Vital Signs: Last Vital Signs Pulse 70 07/16/23 09:01 Resp 17 07/16/23 09:01 BP 114/70 07/16/23 09:01 Pulse Ox 97 07/16/23 09:01 Oxygen Delivery Method Room Air 07/16/23 09:01 BMI result Body Mass Index 40.0 Const General: cooperative, healthy appearing, comfortable, no acute distress, alert and well groomed Nutritional Appearance: obese Orientation/consciousness: patient oriented x3 HEENT Head: Yes normocephalic and Yes atraumatic Ears: hearing grossly normal bilaterally Eyes General: appearance normal, both eyes and all related structures Eyelids: Yes eyelids normal Pupils: Equal, round and reactive pupils present EOM: EOMs intact bilaterally Neck Neck: Yes normal visual inspection and Yes no JVD Resp Effort & Inspection: normal respiratory effort, able to speak in complete sentences and no audible wheezes Cardio Jugular venous distension: no JVD Back/Spine/Pelvis Other: Tenderness on palpation on the projection of the left sacroiliac joint. On the left Positive Gaenslen test positive Rangel test positive pelvis compression test and negative pelvis destruction test. Neuro General: patient oriented x3, gait normal and moves all extremities Cranial nerves: Yes Equal, round and reactive pupils present Psych Appearance: grossly normal Mental Status: mental status grossly normal Speech and movement: Normal speech and movement present Assessment & Plan Assessment & Plan (1) Postlaminectomy syndrome: Code(s): M96.1 - Postlaminectomy syndrome, not elsewhere classified (2) Chronic pain syndrome: Code(s): G89.4 - Chronic pain syndrome (3) Chronic, continuous use of opioids: Code(s): F11.90 - Opioid use, unspecified, uncomplicated (4) Sacroiliitis: Code(s): M46.1 - Sacroiliitis, not elsewhere classified (5) Bilateral plantar fasciitis: Code(s): M72.2 - Plantar fascial fibromatosis (6) Neuropathy of both feet: Code(s): G57.93 - Unspecified mononeuropathy of bilateral lower limbs (7) Mononeuropathy, unspecified: Code(s): G58.9 - Mononeuropathy, unspecified Plan Excellent results of diagnostic left sacroiliac joint innervation injection 3 days ago. Patient enjoys real good pain relief better mobility, better social interactions better activities of daily living. He will be registered on web site with [facility]. After that we will consider trial of curonix PNS. History of enlarged cranial cisterns currently under observation with neurosurgeon for potential insertion of [employer] shunt. Coding Level of Care Code Est Pt Level 3 (58757) Diagnoses Postlaminectomy syndrome M96.1 Chronic pain syndrome G89.4 Chronic, continuous use of opioids F11.90 Sacroiliitis M46.1 Bilateral plantar fasciitis M72.2 Neuropathy of both feet G57.93 Mononeuropathy, unspecified G58.9
[2023-07-16 09:01] VITALS: BP 114/70; PULSE 70; RESP 17; O2SAT 97; BMI 40.0
== END 2023-07-16 09:11 | disposition home or self-care (01) ==
PROVIDERS: PCP Internal Medicine; Visit Provider Anesthesiology
DX: G89.4 Chronic pain syndrome (principal); M96.1 Postlaminectomy syndrome, not elsewhere classified; M46.1 Sacroiliitis, not elsewhere classified; Z79.891 Long term (current) use of opiate analgesic; M72.2 Plantar fascial fibromatosis; G57.93 Unspecified mononeuropathy of bilateral lower limbs; G58.9 Mononeuropathy, unspecified
CPT/HCPCS: 99213

== ENCOUNTER → 2023-07-16 08:50 | Outpatient (BNVA) | payer OTHER, SELFPAY | PROVIDERS: PCP Internal Medicine; Visit Provider Anesthesiology ==

== ENCOUNTER → 2023-07-19 19:30 | Outpatient (REF) | payer OTHER, SELFPAY | LOC: HO.SL 19:30 | PROVIDERS: PCP Internal Medicine; Visit Provider Nurse Practitioner Family | DX: G47.33 Obstructive sleep apnea (adult) (pediatric) (principal); Z78.9 Other specified health status | CPT/HCPCS: 95810 ==

== ENCOUNTER → 2023-07-19 22:46 | Outpatient (BNV) | payer OTHER, SELFPAY | PROVIDERS: PCP Internal Medicine; Visit Provider Psychiatry & Neurology Neurology | DX: G47.33 Obstructive sleep apnea (adult) (pediatric) (principal) | CPT/HCPCS: 95810 ==

== ENCOUNTER 2023-09-05 12:43 | Outpatient (RCR) | payer OTHER, SELFPAY ==
--- NOTE | 2023-09-11 11:46 | MHC.SP.ADU ---
Referring provider: Dr. Aceves Reason for Referral: Cognitive Therapy Type of Treatment: 23457 Standardized Cognitive Performance Testing, per hour Date of Plan of Treatment: 09/05/23 Onset of Symptoms/Illness: 09/05/19 Date Treatment Started: 09/05/23 Medical Diagnosis: Cognitive Disorder, Unspecified mental disorder due to known physiological condition Brain MRI: Global Volume Loss and Ventriculomegaly. Primary Speech Language Diagnosis: I69.911 Memory deficit Secondary Speech Language Diagnosis: R41.841 Cognitive communication disorder History Angel Alberts is a 73 year old man who was referred by his Neurologist, Dr. Aceves for a cognitive assessment/cognitive therapy. Angel reports that he has been having increasing difficulty with his memory for the past two to three years. However he also noted that as much as seven years ago, he began to notice he was having difficulty doing simple math in his head, which was something he did regularly as a part of his work day. Angel reports that his difficulty with memory has been worsening, and most concerning to him is that he frequently starts to comment on something in conversation, but then can forget what he began talking about, causing confusion and embarrassment. He says that as a result he avoids conversation and general social communication. Angel and his Rose, who also came to the appointment today, report that he has voluntarily given up driving, as he has had episodes where he can't remember landmarks or correct exit signs and can become confused. He does still drive to very routine and familiar places (e.g. his children's houses, local errands). Angel further reports that he has difficulty following television programs due to difficulty holding on to the plot or roles of specific characters. He reports he mostly reads brief news items, which he does not have difficulty understanding, and generally has not been a reader of novels. 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 He and his are currently splitting their time between their homes in [place] and in [place], [place]. Angel and Rose reported that they are very involved with their family and Grandchildren's activities when they are local, and try to divide their time throughout the year between [place] and [place]. Angel reported hobbies of golfing and gardening, which he still enjoys. Medical History: High Blood Pressure Other: Hyperlipidemia, Atrial Fibrillation, Pacemaker, Sick Sinus Syndrome, Insomnia, Sleep Apnea, Anxiety, Hearing Loss, history of bilateral knee replacement, history of lumbar laminectomy for spinal cord decompression. Medication List: Gabapentin, atorvastatin, lisinopril, Eliquis, furosemide, Escitalopram, Trazodone Recent Hospitalizations: No Respiratory Needs: Room Air Patient Orientation: Alert & Oriented x 4 Social History: Employment Status: Retired Highest level of education obtained: Completed Bachelor's Current Living Situation: Lives with his in private homes in [place], [place] and [place], [place] Past Speech Language Therapy: None Other Therapies Seen in Current Calendar Year: None Reported Speech, Language, Cognition difficulties: Memory, Cognition, Word Finding Comments: Angel presents with a moderate impairment of memory and processing which cumulatively affects his general communication skills. Quality of Life: Excellent Patient Stated Goal of Speech-Language Therapy: Provide therapeutic strategies for communication and memory skills Assessment Speech Production: Articulate Clinical Impression: Intact Observations: Angel general speech/articulation skills are all within functional limits. He communicates with clearly pronounced, articulate speech. Informal Voice Assessment: Voice Loudness: Normal Voice Nasal Resonance: Voice Oral Resonance: Normal Voice Phonatory-based Quality: Normal Voice Pitch: Normal Clinical Impression: Intact Clinicial Observations: Angel's evidences not difficulty with voice or vocal production. Tests of Speech & Language Adults: BDAE Clinical Impression: Impaired Observations: Some subtests of the [place] Diagnostic Aphasia Evaluation/Short Form were used to briefly evaluate language skills, given Angel's concerns about occasional word finding difficulty and general communication. With regard to wordfinding: Angel was able to identify 14/15 items on the BNT short form without difficulty, and he was able to provide a cohesive narrative/description of the Cookie Theft picture without evidence of word finding or hesitancy. On some subtests of receptive language, Angel did struggle with remembering and processing information from short paragraph length information, at times being confused by the questions and clearly not retaining details from the briefly presented information. As all were brief assessments of language function, further, more in depth assessment of receptive and expressive language skills is recommended. Tests of Cognition: RBANS Clinical Impression: Impaired Observations: The Repeatable Battery for the Assessment of Neuropsychological Status (RBANS-Update Form A) was used to assess aspects of cognitive memory, language and attention skills. The RBANS is considered a screening battery for adult cognitive function, and is repeatable for the purpose of evaluating any changes in function. Composite domains assessed in this evaluation are: Immediate Memory; Visuospatial/Constructional; Language; Attention; and Delayed Memory. Domain index scores and percentile ranking are the following: Subtest/Domain Index Score Percentile Rank Immediate Memory 61 .5 Visuospatial/Constructional 81 10 Language 101 52 Attention 82 11 Delayed Memory 56 .1 TOTAL TEST 70 2 Angel presents with a moderate impairment of memory skills associated with immediate recall of information, visual memory, and remote or delayed recall of information. Angel will have great difficulty recalling new information, details, brief data presented auditorily. This may be most evident when verbal directions are given, or phone numbers are recited for recall, or specific dates or other information is briefly given and not written down. However, this level of difficulty with short term memory can additionally affect general comprehension in daily activities such as difficulty recalling details from conversations, sustaining conversations, and misplacing needed items. This also affects leisure areas such as understanding an evolving plot while watching complex narratives on tv or film. Angel's difficulty with delayed recall/memory will also generally affect new learning, making changes in routines, synthesizing new information or data, or acquiring new skills very difficult. While scores indicate generaly weakness with visuospatial/constructional skills, it was evident that Angel has a specific weakness with visual memory(evident when both trying to copy then recall a complex diagram), but otherwise had strong skills with visual processing. Angel also demonstrated average skills in the language domain, being able to label objects with skill and able to generate semantic related language. Angel is functionally able to express himself, but may have difficulties engaging in conversation due to his memory weaknesses. His language skills may at time mask the level of confusion he is coping with. Angel does currently evidence insight into his difficulties, and that insight is unfortunately causing him a both anxiety and frustration at times. It is important for family members and others close to Angel to know that remembering and recalling information and details will be very challenging, and that learning new tasks, however mundane, may take more time, and will need structure and practice in order to complete them. It may be at times hard to anticipate what he might have difficulty with or what he cannot remember. It is recommended that Angel return for a trial period of cognitive therapy to instruct strategies for managing memory and processing needs. Impressions and Recommendations Summary: On assessment today, Angel presents with a moderate impairment of memory and processing skills.? While Angel's general language skills are quite strong, his difficulties with memory and processing cumulatively affects his general communication skills, which he reports as being an area of great frustration leading to avoidance of social interaction.? Angel was noted on several occasions today to start to speak about a topic, but then seeming to forget what he had begun to speak about and stopped talking.? Immediate recall of verbally presented information was the greatest area of need noted today, as well as delayed recall/retention of information.? Angel additionally demonstrated limited use of strategies for recall or learning new information during the assessment.? Angel will generally find learning and retaining new information very challenging.? Angel has an area of strength with visually processing and interpreting visual information, however his visual memory is also moderately impaired, which may lead to difficult recalling location (e.g. of items or specific visual information).? On briefly administered language testing, Angel demonstrated word finding/recall skills that were average, but demonstrated difficulty with processing and reasoning about more complex verbal information, likely secondary to his memory difficulties.? Further testing of receptive and expressive language skills is recommended.? It is recommended that Angel return for a trial period of cognitive therapy to instruct strategies for managing memory and processing needs. Impact on Daily Function/Activity Limitations: Daily Activities: Moderate Interpersonal Interactions: Moderate Community: Moderate Prognosis for Improvement: Good Recommendation for Speech Therapy: Outpatient Speech Therapy Frequency/Duration: One weekly, 45 minute cognitive therapy session weekly, for a period of eight to twelve weeks. Due to his family travel between homes in [place] and [place], Angel will likely need for services to be provided via teletherapy. Time to Reassess: PRN [employer] Operations Engineer Goals: Angel will apply strategies, applications and accommodations to manage tasks that require immediate recall and processing in four out of five contexts. Short Term Goals: Goal # : Angel will use a rehearsal strategy to recall a detail or specific information from visual or verbal presented information with 80% accuracy Goal Status: Goal# : Anegl will use a visualization strategy to recall a detail or specific information from verbally presented information with 80% accuracy. Goal Status: Goal # : Angel will use an association strategy to retain and retrieve specific information from visually or verbally presented information with 80% accuracy. Goal Status: Goal # : Given a specific conversational topic, Angel will sustain speaking on the topic with a conversational partner for at least three to four conversational turns. Goal Status: Patient Education: Completed: Yes Patient/Caregiver Education: Described Results of Evaluation Patient expressed understanding of evaluation Patient agrees with goals and treatment plan Comments/Barriers to Learning: Driver Manager Clinican/Clinical Fellow: No Supervisory Statement: N/A Speech Language Pathologist: Antonella Wilder M.A., CCC-TOOL POLISHING MACHINE OPERATOR
== END 2023-10-12 13:04 | disposition still patient (30) ==
LOC: HO.SH 12:43
PROVIDERS: Visit Provider Psychiatry & Neurology Neurology
DX: I69.911 Memory deficit following unspecified cerebrovascular disease (principal)
CPT/HCPCS: 96125

== ENCOUNTER 2023-09-07 13:05 | Day surgery (SDC) | payer OTHER, SELFPAY ==
--- NOTE | 2023-09-06 10:54 | HO.ANESPROP2 ---
Documented by User: Julianne Claros NP 09/06/23 14:47 HPI - Anesthesia Eval Consult details Narrative: 73yo M for Left Sacroiliac Joint Steroid Injection s/p Diagnostic Sacroiliac Joint Innervation Injection 06/2023 with TIVA Follows [facility] cardiology. Last office eval 03/2023. Denies any cardiac symptoms and stable for 1 year f/u Pacer in situ (SSS) - implanted 2017 - Requested most recent interrogation from [facility] cardiology 09/06/23 Eliquis for Afib - ok to hold 48h per cardiology [facility] Active Problems Active Problems: All Active Problems (Updated 06/14/23 @ 08:27 by Yisel Aceves MD) Arthritis of left hip (Acute) Mononeuropathy, unspecified (Acute) Sacroiliitis (Acute) Neuropathy of both feet (Acute) Chronic, continuous use of opioids (Acute) Chronic pain syndrome (Acute) Postlaminectomy syndrome (Acute) Cerebral ventriculomegaly (Acute) Difficulty with CPAP nasal mask use (Acute) Insomnia (Acute) Snoring (Acute) Cognitive disorder (Acute) Hyperlipidemia (Acute) Obstructive sleep apnea (Acute) HTN (hypertension) (Acute) Sick sinus syndrome (Acute) Atrial fibrillation (Acute) Anxiety (Acute) Bilateral plantar fasciitis (Acute) Past Medical History Medical History Cerebral ventriculomegaly Difficulty with CPAP nasal mask use Insomnia Snoring Cognitive disorder Hyperlipidemia Obstructive sleep apnea HTN (hypertension) Sick sinus syndrome Atrial fibrillation Anxiety Pacemaker Bilateral plantar fasciitis Family History Family History Father Hypertension Mother Hypertension Breast cancer Sister Hypertension Brother Hypertension Brother Hypertension Brother Hypertension Family history of problems with anesthesia: No Surgical History Surgical History History of permanent cardiac pacemaker placement History of lumbar laminectomy for spinal cord decompression History of tonsillectomy History of bilateral knee replacement History of Problems with Anesthesia: No Social History Social History Alcohol intake: current Alcohol intake frequency: holidays/special occasions only Patient Tobacco Use Status: Former Tobacco user Use of substances other than those prescribed or required for medical reasons: No Substance Use Type: Marijuana Are you DNR?: No Advance Directives: No Advance Directives Information Provided: Yes Meds Allergies Allergy/AdvReac Type Severity Reaction Status Date / Time No Known Allergies Allergy Verified 09/07/23 13:37 Home Medications Medication Instructions Recorded Confirmed Last Taken Type apixaban 5 mg tablet 5 mg PO BID 04/26/20 09/07/23 09/03/23 History atorvastatin 40 mg tablet 40 mg PO DAILY 04/26/20 09/07/23 07/12/23 History lisinopril 10 mg tablet 10 mg PO DAILY 04/26/20 09/07/23 09/07/23 07:00 History trazodone 50 mg tablet 50 mg PO DAILY 04/26/20 09/07/23 07/12/23 History furosemide 20 mg tablet 20 mg PO DAILY 01/05/21 09/07/23 09/07/23 07:00 History escitalopram oxalate 20 mg tablet 40 mg PO DAILY 01/25/23 09/07/23 09/07/23 07:00 History Exam Narrative Narrative: EKG 03/2023 SR at 63bmp without any ST segment deviation or pathologic Q waves Pacer interr 05/2023 Nml lead and device function. Battery longevity is 60% remaining. AP 33%. POLITICAL ANTHROPOLOGIST 7%. AT/AF burden is 1% Assessment and Plan Assessment Anesthesia Assessment: Chart Reviewed Final Anesthetic Review Family History of Problems with Anesthesia: No History of Problems with Anesthesia: No Documented by User: Deo Stearns MD 09/07/23 15:01 [facility] Past Medical History Medical History Cerebral ventriculomegaly Difficulty with CPAP nasal mask use Insomnia Snoring Cognitive disorder Hyperlipidemia Obstructive sleep apnea HTN (hypertension) Sick sinus syndrome Atrial fibrillation Anxiety Pacemaker Bilateral plantar fasciitis Family History Family History Father Hypertension Mother Hypertension Breast cancer Sister Hypertension Brother Hypertension Brother Hypertension Brother Hypertension Surgical History Surgical History History of permanent cardiac pacemaker placement History of lumbar laminectomy for spinal cord decompression History of tonsillectomy History of bilateral knee replacement Social History Social History Alcohol intake: current Alcohol intake frequency: holidays/special occasions only Patient Tobacco Use Status: Former Tobacco user Use of substances other than those prescribed or required for medical reasons: No Substance Use Type: Marijuana Are you DNR?: No Advance Directives: No Advance Directives Information Provided: Yes Meds Allergies Allergy/AdvReac Type Severity Reaction Status Date / Time No Known Allergies Allergy Verified 09/07/23 13:37 Home Medications Medication Instructions Recorded Confirmed Last Taken Type apixaban 5 mg tablet 5 mg PO BID 04/26/20 09/07/23 09/03/23 History atorvastatin 40 mg tablet 40 mg PO DAILY 04/26/20 09/07/23 07/12/23 History lisinopril 10 mg tablet 10 mg PO DAILY 04/26/20 09/07/23 09/07/23 07:00 History trazodone 50 mg tablet 50 mg PO DAILY 04/26/20 09/07/23 07/12/23 History furosemide 20 mg tablet 20 mg PO DAILY 01/05/21 09/07/23 09/07/23 07:00 History escitalopram oxalate 20 mg tablet 40 mg PO DAILY 01/25/23 09/07/23 09/07/23 07:00 History Exam Airway Mallampati Class: IV TM Dist: <=3cm Neck ROM: Full Heart: rrr Lungs: cta b/l Assessment and Plan Final Anesthetic Review NPO: Yes ASA Class: III Final Preanesthetic Review: No Changes in Pt Med Stat, Meds/Allgs Chart Reviewed, Consent Obtained/Reviewed and Anes Risks/Benef Reviewed Patient Risk: High Procedure Risk: Intermediate Anesthetic Plan Anesthetic Plan: MAC:
--- NOTE | ~2023-09-07 | FL_ITS ---
EXAMINATION: XR FLUOROSCOPY WITH IMAGES CLINICAL INFORMATION: Sacroiliac joint steroid injection. COMPARISON: Fluoroscopy images from 07/13/2023. TECHNIQUE: Fluoroscopy Supervised By: Dr. Beck. Fluoroscopy Time: 0.2 min Cumulative Dose: 6.31 mGy. DAP: 1.72 Gycm2. Images: 1 image is saved into the electronic picture archive. FL/FL guidance in OR FINDINGS AND IMPRESSION: Fluoroscopic imaging equipment utilized by Dr. Beck during a sacroiliac joint injection procedure. 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
[2023-09-07 13:50] VITALS: BMI 39.2
[2023-09-07 13:51] VITALS: BP 134/85; PULSE 62; RESP 16; TEMP 36.8; O2SAT 96
[2023-09-07] MEDS: Lactated Ringers 1,000 ML 100 ML IVCONT (14:05)
--- NOTE | 2023-09-07 14:41 | MHC.SHP ---
Pre-Procedural Eval Section A - 24 Hr Update-Section A only Date of Service: 09/07/23 The patient is an INPATIENT: No Changes since office visit: Yes Patient answered all questions The patient has been examined within 24 hours of the surgical procedure. The History & Physical has been completed within 30 days and I have reviewed it.: No Section B - Complete if H&P > 30 days Chief Complaint: Sacroiliitis, not elsewhere classified Details of Present Illness: as above Relevant Family History (Specify if Yes): No Relevant Social History: Other (specify) Present Medications: None Medical History: No relevant PMH History of Previous Operations: No relevant previous surgery Allergies: Allergies Allergy/AdvReac Type Severity Reaction Status Date / Time No Known Allergies Allergy Verified 09/07/23 13:37 Review of Systems Sugical H&P ROS: Negative: Constitution, Psychiatric, Hem-Onc, Allergic/Immunologic, Gastrointestinal, Genitourinary, Integumentary, Endocrine and Eyes/Ears/Nose/Throat and Yes, Specify: Cardiovascular (HTN, afib), Respiratory (YUMIKO), Neurological (cerebral ventriculomegaly) and Musculoskeletal (osteoarthritis, sacroiliitis.) Exam Surgical H&P Exam: Normal: HEENT, Normal: Heart, Normal: Lungs, Normal: Extremities, Normal: Abdomen, Normal: Skin and Normal: Neurological Plan Diagnosis/Plan: Unchanged I have reviewed the history and physical and performed a pertinent physical examination on my patient. No changes have occurred unless specified. Time Spent With Patient Time: Total time managing care of this patient today __5__ minutes.
--- NOTE | 2023-09-07 14:45 | PM.OP ---
Brief Operative Note Date of Service: 09/07/23 Pre-op diagnosis: Sacroiliitis sacroiliac joint pain on the left Post-op diagnosis: same Procedure: Left sacroiliac joint injection. Surgeon: Kamari eBck MD Anesthesia: MAC Was an Agricultural Research Technician used for this Procedure?: No Estimated blood loss (mL): 4 Condition: stable Disposition: PACU
--- NOTE | 2023-09-07 14:46 | P.OP_ITS ---
Operative Note Operative Note Date of Service: 09/07/23 Narrative: Left sacroiliac joint injection. Informed consent was explained thoroughly to the patient. All questions about benefits and risks for the procedure were answered. Patient came to the operating room and was positioned prone on the operating table with the pillow under the abdomen. ASA monitors were applied patient was moderately sedated. Time out was performed delineating name and of the patient, allergies and the nature of the procedure. The lower back and buttocks of the patient were prepped with ChloraPrep prepped and draped with sterile utility towels. C-arm was brought over the operating f ield and sq picture of patient's pelvis was demonstrated on the screen. For the left joint tilting C-arm contralateral to the site of the joint the most posterior portion of the joints was superimposed with anterior silhouette of the joint. Skin was injected in the projection of the joint slightly medial to the location of the joint with 25 gauge 1/2 inch needle using local lidocaine 2% .After that 22 gauge 3 and 1/2 inch needle was driven to the left joint in tunnel vision fashion. When needle entered the joint capsule injection of the contrast was performed demonstrating intra-articular and minimally periarticular spread of the contrast. After that 4 cc. of ropivacaine 0.5% mixed with Kenalog 40 mg was injected into the joint. Upon completion of the injections the needle was removed Sterile dressing was applied. Upon completion of the injection patient was taken outside of the operating room to the recovery room where recovered uneventfully.
[2023-09-07 15:33] VITALS: BP 103/57; PULSE 58; RESP 18; TEMP 36.8; O2SAT 94
--- NOTE | 2023-09-07 16:12 | P.CONAN_ITS ---
[facility] Active Problems Active Problems: All Active Problems (Updated 06/14/23 @ 08:27 by Yisel Aceves MD) Arthritis of left hip (Acute) Mononeuropathy, unspecified (Acute) Sacroiliitis (Acute) Neuropathy of both feet (Acute) Chronic, continuous use of opioids (Acute) Chronic pain syndrome (Acute) Postlaminectomy syndrome (Acute) Cerebral ventriculomegaly (Acute) Difficulty with CPAP nasal mask use (Acute) Insomnia (Acute) Snoring (Acute) Cognitive disorder (Acute) Hyperlipidemia (Acute) Obstructive sleep apnea (Acute) HTN (hypertension) (Acute) Sick sinus syndrome (Acute) Atrial fibrillation (Acute) Anxiety (Acute) Bilateral plantar fasciitis (Acute) Past Medical History Medical History Cerebral ventriculomegaly Difficulty with CPAP nasal mask use Insomnia Snoring Cognitive disorder Hyperlipidemia Obstructive sleep apnea HTN (hypertension) Sick sinus syndrome Atrial fibrillation Anxiety Pacemaker Bilateral plantar fasciitis Family History Family History Father Hypertension Mother Hypertension Breast cancer Sister Hypertension Brother Hypertension Brother Hypertension Brother Hypertension Family history of problems with anesthesia: No Surgical History Surgical History History of permanent cardiac pacemaker placement History of lumbar laminectomy for spinal cord decompression History of tonsillectomy History of bilateral knee replacement History of Problems with Anesthesia: No Social History Social History Alcohol intake: current Alcohol intake frequency: holidays/special occasions only Patient Tobacco Use Status: Former Tobacco user Substance Use Type: Marijuana Meds Allergies Allergy/AdvReac Type Severity Reaction Status Date / Time No Known Allergies Allergy Verified 09/07/23 13:37 Home Medications Medication Instructions Recorded Confirmed Last Taken Type apixaban 5 mg tablet 5 mg PO BID 04/26/20 09/07/23 09/03/23 History atorvastatin 40 mg tablet 40 mg PO DAILY 04/26/20 09/07/23 07/12/23 History lisinopril 10 mg tablet 10 mg PO DAILY 04/26/20 09/07/23 09/07/23 07:00 History trazodone 50 mg tablet 50 mg PO DAILY 04/26/20 09/07/23 07/12/23 History furosemide 20 mg tablet 20 mg PO DAILY 01/05/21 09/07/23 09/07/23 07:00 History escitalopram oxalate 20 mg tablet 40 mg PO DAILY 01/25/23 09/07/23 09/07/23 07:00 History Exam Height,Weight and Vital Signs: Height 5 ft 10 in Weight 123.831 kg Last Vital Signs Temp 98.3 F 09/07/23 15:33 Pulse 58 09/07/23 15:33 Resp 18 09/07/23 15:33 BP 103/57 L 09/07/23 15:33 Pulse Ox 94 09/07/23 15:33 O2 Del Method Room Air 09/07/23 15:33 Airway Mallampati Class: II TM Dist: >3cm Neck ROM: Full Denture: Upper and Lower Heart: rrr Lungs: cta b\l Assessment and Plan Assessment Anesthesia Assessment: Anesthesia Plan Discussed and Chart Reviewed Final Anesthetic Review Family History of Problems with Anesthesia: No History of Problems with Anesthesia: No NPO: Yes ASA Class: III Final Preanesthetic Review: No Changes in Pt Med Stat, Consent Obtained/Reviewed and Anes Risks/Benef Reviewed Patient Risk: Intermediate Procedure Risk: Intermediate Anesthetic Plan Anesthetic Plan: MAC: Disposition: Standard PACU
== END 2023-09-07 16:07 | disposition home or self-care (01) ==
PROVIDERS: PCP Internal Medicine; Visit Provider Anesthesiology
PROC: 3E0U33Z Introduction of Anti-inflammatory into Joints, Percutaneous Approach (ICD-10-PCS; CPT 27096; principal; 2023-09-07 14:50)
DX: M46.1 Sacroiliitis, not elsewhere classified (principal); M16.12 Unilateral primary osteoarthritis, left hip; G89.4 Chronic pain syndrome; E78.5 Hyperlipidemia, unspecified; I48.91 Unspecified atrial fibrillation; Z79.02 Long term (current) use of antithrombotics/antiplatelets; Z79.01 Long term (current) use of anticoagulants; Z79.899 Other long term (current) drug therapy
CPT/HCPCS: 27096; J2704; J2795; J3301; Q9967

== ENCOUNTER → 2023-09-07 13:05 | Outpatient (BNV) | payer OTHER, SELFPAY | PROVIDERS: PCP Internal Medicine; Visit Provider Anesthesiology | DX: M46.1 Sacroiliitis, not elsewhere classified (principal) | CPT/HCPCS: 27096 ==

== ENCOUNTER 2023-10-04 09:06 | Outpatient (AMB) | payer OTHER, SELFPAY ==
--- NOTE | 2023-10-04 09:13 | MHC.OFFVIS ---
Intake Vital Signs 10/04/23 09:14 Height 5 ft 10 in Weight 275 lb BMI 39.5 BP 112/68 Blood Pressure Location Rt brachial Position Left Lateral Respiration 17 Pulse 65 Pulse Source Pulse Oximeter Pulse Oximetry (%) 97 Oxygen Delivery Method Room Air Intake Visit Reasons: 3 mo f/u - Memory Changes/Loss-Confirmed Intake Note: Pt presents for a 4 month follow up for cognitive disorder. Tape Editor Required: No Allergies No Known Allergies Allergy (Verified 10/04/23 09:14) Medication List - Last Reconciled 10/04/23 by Yisel Aceves MD apixaban 5 mg PO BID atorvastatin 40 mg PO DAILY escitalopram oxalate 40 mg PO DAILY furosemide 20 mg PO DAILY gabapentin 300 mg PO BEDTIME 30 days lisinopril 10 mg PO DAILY trazodone 50 mg PO DAILY HPI HPI Comments History of Present Illness Details 73y/o male comes for follow up of memory issues. He had a sleep study which was c/w severe sleep apnea NUHA 50 and he is on AUtoPAP 5-15 - frequently remove his mask at night without realizzing . His is interested in [employer]SP[employer]. His MRI brain showed global volume loss and ventriculomegaly. He denies urinary incontinence but has increased frequency and urgency . He feels there is mild worsening since last visit. He has trouble with conversations. He started noticing minor issues with short term memory issues about 2-3 years.He forgets peoples names, goes to a room and has no clue why he went there, forgets conversations, forgets to takes medications sometimes etc. He frequently forgets conversations , word finding difficulties . 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 No personality or behavior changes. He has h/o anxiety. No h/o head injury. No fh/o dementia. He used to be on clonazepam and oxycodone - 4 years ago he was tapered off clonazepam quickly and his anxiety significantly worsened.His feels his memory issues worsened since then He has trouble with sleep, diagnosed with sleep apnea and is on CPAP. [facility] Medical History (Updated 10/04/23 @ 10:07 by Yisel Aceves MD) YUMIKO on CPAP Cerebral ventriculomegaly Difficulty with CPAP nasal mask use Insomnia Snoring Cognitive disorder Hyperlipidemia Obstructive sleep apnea HTN (hypertension) Sick sinus syndrome Atrial fibrillation Anxiety Pacemaker Bilateral plantar fasciitis Surgical History History of permanent cardiac pacemaker placement History of lumbar laminectomy for spinal cord decompression History of tonsillectomy History of bilateral knee replacement Family History Father Hypertension Mother Hypertension Breast cancer Sister Hypertension Brother Hypertension Brother Hypertension Brother Hypertension Social History Alcohol intake: current Alcohol intake frequency: holidays/special occasions only Patient Tobacco Use Status: Former Tobacco user Substance Use Type: Marijuana Physical Exam Vital Signs: Last Vital Signs Pulse 65 10/04/23 09:14 Resp 17 10/04/23 09:14 BP 112/68 10/04/23 09:14 Pulse Ox 97 10/04/23 09:14 Oxygen Delivery Method Room Air 10/04/23 09:14 BMI result Body Mass Index 39.5 Const General: cooperative and anxious Nutritional Appearance: obese Orientation/consciousness: oriented to person and oriented to place Eyes Pupils: Equal, round and reactive pupils present Neuro General: oriented to person, oriented to place, tone normal, moves all extremities and no focal motor deficits Cranial nerves: Yes Equal, round and reactive pupils present, Yes Bilaterally intact EOM present, Yes Nystagmus not present, Yes Normal facial strength present and Yes Midline tongue present Cognition (Neuro): normal cognition Gait exam (Neuro): Antalgic gait present Motor exam (neuro): 5/5 motor strength present throughout and Normal motor muscle tone present throughout Coordination: [id number] test normal Psych Affect: Anxious affect present Orientation What is the (year) (season) (date) (day) (month)?: year, season, date, day and month Where are we (state) (county) (town or city) (hospital) (floor)?: state, county, town or city, hospital/clinic and floor Registration Name of 3 unrelated objects clearly and slowly, then ask patient to repeat all 3 of them. (1st repeat determines score. Make sure they can repeat all three): object 1, object 2 and object 3 Attention & Calculation (CHOOSE ONE) Spell WORLD backwards (DLROW): 5 letters Recall Ask patient to repeat the 3 items from question #3.: object 1 Language Show patient a wristwatch & ask what it is. Repeat for pencil.: watch and pencil Ask the patient to repeat the phrase 'No ifs, ands, or buts' after you.: correct Ask the patient to 'take a piece of paper with their right hand' 'fold paper in half' 'place paper on floor': take paper in right hand, fold paper in half and place paper on floor Print the sentence 'CLOSE YOUR EYES' on a piece. If patient actually closes eyes then score.: followed written direction Give patient a blank piece of paper & ask to write a sentence. Score if it contains a noun & verb.: sentence contains subject and verb Ask patient to copy figure of intersecting pentagons exactly. Score if all 10 angles & 2 intersects are included.: all 10 angles present & 2 are intersected Score Score: 28 Assessment & Plan Assessment & Plan (1) Cognitive disorder: Code(s): F09 - Unspecified mental disorder due to known physiological condition (2) Insomnia: Code(s): G47.00 - Insomnia, unspecified (3) YUMIKO on CPAP: Code(s): G47.33 - Obstructive sleep apnea (adult) (pediatric) Plan MRI brain results discussed - seen by neurosurgery . continue lexapro 40mg qd Psychotherapy Cognitive therapy Increase physical activity Continue CPAP 5-15 cm and compliance stressed. Interested in INSPIRE. melatonin 1-3 mgq hs Coding Level of Care Code Est Pt Level 4 (24465) Diagnoses Cognitive disorder F09 Insomnia G47.00 YUMIKO on CPAP G47.33
[2023-10-04 09:14] VITALS: BP 112/68; PULSE 65; RESP 17; O2SAT 97; BMI 39.5
== END 2023-10-04 10:14 | disposition home or self-care (01) ==
PROVIDERS: PCP Internal Medicine; Visit Provider Psychiatry & Neurology Neurology
DX: R41.89 Other symptoms and signs involving cognitive functions and awareness (principal); G47.00 Insomnia, unspecified; G47.33 Obstructive sleep apnea (adult) (pediatric)
CPT/HCPCS: 99214

== ENCOUNTER → 2023-10-04 09:06 | Outpatient (BNVA) | payer OTHER, SELFPAY | PROVIDERS: PCP Internal Medicine; Visit Provider Psychiatry & Neurology Neurology ==

== ENCOUNTER 2023-10-11 10:36 | Outpatient (AMB) | payer OTHER, SELFPAY ==
--- NOTE | 2023-10-11 10:37 | A.OFFVIS_ITS ---
Intake Intake Visit Reasons: S/p (L) SIJ Injection 09/07/23 Allergies No Known Allergies Allergy (Verified 10/11/23 10:37) HPI HPI Comments History of Present Illness Details Angel is on the telephone to discuss the results of the injection. On 07/12/2023 he went for diagnostic sacroiliac joint innervation injection for the left joint. He reported today 8 hours of complete pain relief. He reported better mobility, better social interactions, better activities of daily living. He reported continued pain relief for few days after the procedure..PNS Curonix this discussed and he went for psych evaluation. However unfortunately his insurance company denied PNS cure on X to treat his pain. I had to perform sacroiliac joint steroid injections however left sacroiliac joint injection resulted only in 2 weeks of pain relief and right sacroiliac joint injection resulted only in 3 days of pain relief. I offered him today StarGreetz spinal cord stimulator trial in the attempt to control his pain. He agreed to try this procedure. He also reports difficulty with urination and ejaculation. He requests me to refer him to urologist. I will send him to our Urology. He exhibits signs of the forgetfulness and difficulty with mental tasks. He was sent for the surgical evaluation in the order to potentially consider BARK SPUDDER shunt. 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 Prior: left therapeutic sacroiliac joint injection in September of 2022. He reports pain before the injection is 5 to 6/10. He reports pain after the injection is 1 to 2/10. During the injection I encountered significant difficulty with placing my needle into the sacroiliac joint. Angel is under observation in this office for postlaminectomy syndrome.? He is no longer on chronic opioid therapy in this office.? He was suspended in our opioid program for refusal to show up for UDS.? He is suspended until December of 2022. He was sent for hip x-ray and lumbar spine x-ray and results are dictated as below.? I performed for him left hip injection and he reports only few days of pain improvement.? He reports that in the past he received left sacroiliac joint injection with [facility].? I offered him to try to repeat this injection diagnostically in the order to possibly diagnose his sacroiliac joint pain.? It may open?up some avenues? to treat his chronic pain . lower back pain without radiations? also pain in bilateral knees which is separate from the back pain. his back pain is associated with numbness on lateral lower legs below the level of the knees. numbness in constant, does not change. Onset in 1989 after fall trauma.? History of 2 back surgeries in 1900 and 2005. laminectomies of L4-L5 and L5-S1 . He had 3 knee operations and 2 total knee replacements to address his pain. ?[facility] : multiple cortisone injections done without any success. They insisted to continue those injections. ? ? On x-ray: ?14 degree dextroscoliosis within effects at L3 intervertebral disc space narrowing is most prominently seen at L5-S1 with 80% disc space elimination relative to the cephalad levels. T12-L1 appears to have considerable degree of disc space narrowing no fracture or tumor no hardware. He had MRI 5 years ago at [facility]. [facility] Medical History (Updated 10/11/23 @ 10:56 by Kamari Beck MD) YUMIKO on CPAP Cerebral ventriculomegaly Difficulty with CPAP nasal mask use Insomnia Snoring Cognitive disorder Hyperlipidemia Obstructive sleep apnea HTN (hypertension) Sick sinus syndrome Atrial fibrillation Anxiety Pacemaker Bilateral plantar fasciitis Surgical History History of permanent cardiac pacemaker placement History of lumbar laminectomy for spinal cord decompression History of tonsillectomy History of bilateral knee replacement Family History Father Hypertension Mother Hypertension Breast cancer Sister Hypertension Brother Hypertension Brother Hypertension Brother Hypertension Social History Alcohol intake: current Alcohol intake frequency: holidays/special occasions only Patient Tobacco Use Status: Former Tobacco user Substance Use Type: Marijuana Assessment & Plan Assessment & Plan (1) Postlaminectomy syndrome: Code(s): M96.1 - Postlaminectomy syndrome, not elsewhere classified (2) Chronic pain syndrome: Code(s): G89.4 - Chronic pain syndrome (3) Chronic, continuous use of opioids: Code(s): F11.90 - Opioid use, unspecified, uncomplicated (4) Sacroiliitis: Code(s): M46.1 - Sacroiliitis, not elsewhere classified (5) Bilateral plantar fasciitis: Code(s): M72.2 - Plantar fascial fibromatosis (6) Neuropathy of both feet: Code(s): G57.93 - Unspecified mononeuropathy of bilateral lower limbs (7) Mononeuropathy, unspecified: Code(s): G58.9 - Mononeuropathy, unspecified (8) Prostate enlargement: Code(s): N40.0 - Benign prostatic hyperplasia without lower urinary tract symptoms (9) Ejaculatory disorder: Code(s): N53.19 - Other ejaculatory dysfunction Plan Excellent results of diagnostic left sacroiliac joint innervation injection however unfortunately after we were planning to perform Curonix PNS on the patient his insurance company denied the procedure because it is ?experimental ?. Attempt to treat the pain with therapeutic sacroiliac joint injection resulted with few weeks of pain relief on the left side and few days of pain relief on the right side. he also reported pain and delay with urination and discomfort with ejaculation. He requests me to refer him to urologist. He believes that he suffers from prostate enlargement. I will refer him to urologist. To treat his problem from sacroiliac joint pain I will schedule him for a trial of spinal cord stimulator StarGreetz. I would need to do this procedure under sedation. Orders: Referrals Urology Referral N40.0 - Benign prostatic hyperplasia without lower urinary tract symptoms, N53.19 - Other ejaculatory dysfunction Patient Instructions: I here by testify that I spent 45 minutes in conversation with this patient as well as evaluating his prior records, his prior images, results of his prior injections as well as organizing his note. Telehealth Telehealth Location of provider rendering services: practice address Location of patient: address on file Patient Identification confirmed using: Name, : Yes Telehealth method: voice only Patient verbally consented to treatment: Yes Patient verbally consented to billing insurance company: Yes Patient informed of any privacy concerns related to visit: Yes Coding Level of Care Code Tele Est Pt Level 5 (95070) Diagnoses Postlaminectomy syndrome M96.1 Chronic pain syndrome G89.4 Chronic, continuous use of opioids F11.90 Sacroiliitis M46.1 Bilateral plantar fasciitis M72.2 Neuropathy of both feet G57.93 Mononeuropathy, unspecified G58.9 Prostate enlargement N40.0 Ejaculatory disorder N53.19
== END 2023-10-11 10:47 | disposition home or self-care (01) ==
LOC: HO.PMC 10:36
PROVIDERS: PCP Internal Medicine; Visit Provider Anesthesiology
DX: G89.4 Chronic pain syndrome (principal); M96.1 Postlaminectomy syndrome, not elsewhere classified; M46.1 Sacroiliitis, not elsewhere classified; Z79.891 Long term (current) use of opiate analgesic; M72.2 Plantar fascial fibromatosis; G57.93 Unspecified mononeuropathy of bilateral lower limbs; G58.9 Mononeuropathy, unspecified; N40.0 Benign prostatic hyperplasia without lower urinary tract symptoms; N53.19 Other ejaculatory dysfunction
CPT/HCPCS: 99215

== ENCOUNTER → 2023-10-11 10:36 | Outpatient (BNVA) | payer OTHER, SELFPAY | PROVIDERS: PCP Internal Medicine; Visit Provider Anesthesiology ==

== ENCOUNTER 2023-12-05 08:41 | Outpatient (AMB) | payer OTHER, SELFPAY ==
--- NOTE | 2023-12-05 08:58 | A.OFFVIS_ITS ---
Intake Visit Reasons: BPH, ejaculatory dysfunction Intake Note: New Patient presents for initial visit for ejaculatory dysfunction Urology Medications: none Blood Thinner: apixaban Mechanic Chief Required: No Accompanied by: Unknown Allergies No Known Allergies Allergy (Verified 12/05/23 09:29) Medication List - Last Reconciled 12/05/23 by JENN Billy apixaban 5 mg PO BID atorvastatin 40 mg PO DAILY escitalopram oxalate 40 mg PO DAILY furosemide 20 mg PO DAILY gabapentin 300 mg PO BEDTIME 30 days lisinopril 10 mg PO DAILY trazodone 50 mg PO DAILY HPI Comments Details: Angel is a 73-year-old male patient of Dr. Ware who was accompanied by his at today's office visit. He has a past medical history of YUMIKO on CPAP, cerebral ventriculomegaly, insomnia, cognitive disorder, hyperlipidemia, hypertension, sick sinus syndrome s/p PPM, AFib, anxiety, bilateral plantar fasciitis. He presents to the office today as a new patient for ejaculatory issues. In discussion with the patient today he reports noting over the last 5- 7 years he has been having decreased semen when ejaculating. He denies any issues with obtaining and maintaining his erections. During today's assessment and evaluation patient is extremely vague when answering questions however patient's states he suffers from a cognitive disorder. He is unsure if he is reaching climax. He currently denies any bothersome urinary issues or concerns. It appears he was referred here by pain management as he follows with Dr. Benites. Recommendations were made for urology referral. He currently denies any bothersome urinary issues or concerns. He reports having had a scrotal ultrasound at [facility] however denies having had any scrotal pain. He denies urinary urgency, urinary frequency, incontinence, nocturia, hematuria, dysuria, foul smelling urine, changes to urinary stream, flank pain, fever, and or chills. He is happy with his current voiding parameters. When asked he denies any previous urological surgeries. He discusses having had his PSA with PCP. He otherwise offers no other issues or concerns. [facility] Medical History YUMIKO on CPAP Cerebral ventriculomegaly Difficulty with CPAP nasal mask use Insomnia Snoring Cognitive disorder Hyperlipidemia Obstructive sleep apnea HTN (hypertension) Sick sinus syndrome Atrial fibrillation Anxiety Pacemaker Bilateral plantar fasciitis Surgical History History of permanent cardiac pacemaker placement History of lumbar laminectomy for spinal cord decompression History of tonsillectomy History of bilateral knee replacement Family History Father Hypertension Mother Hypertension Breast cancer Sister Hypertension Brother Hypertension Brother Hypertension Brother Hypertension Social History Alcohol intake: current Alcohol intake frequency: holidays/special occasions only Patient Tobacco Use Status: Former Tobacco user Substance Use Type: Marijuana Review of Systems Const Reports as per HPI Eyes Reports no additional complaints ENT Reports no additional complaints Card Reports as per HPI Resp Reports as per HPI GI Reports no additional complaints Reports as per HPI Musc Reports as per HPI Neuro Reports as per HPI Psych Reports no additional complaints Endo Reports no additional complaints Cipriano/Lymph Reports no additional complaints Aller/Immun Reports no additional complaints Physical Exam Const General: cooperative, healthy appearing, comfortable, no acute distress, well developed, alert and awake Orientation/consciousness: patient oriented x3 HEENT Head: Yes normal to inspection, Yes normocephalic and Yes atraumatic Ears: hearing grossly normal bilaterally Eyes General: appearance normal, both eyes and all related structures Neck Neck: Yes normal visual inspection and Yes trachea midline Chest Chest palpation & inspection: normal inspection of the chest Resp Effort & Inspection: normal respiratory effort and able to speak in complete sentences Cardio Rate: regular rate GI Inspection: Yes normal to inspection General: Yes no CVA tenderness Back/Spine/Pelvis Back: no CVA tenderness Skin General skin exam: no rashes or lesions noted Neuro General: patient oriented x3 Extrem General: Yes normal to inspection Psych Appearance: grossly normal and well kempt Mental Status: mental status grossly normal Speech and movement: Normal speech and movement present and Clear speech present Affect: normal affect Attitude: cooperative Thought process: Normal thought process present Thought content: Normal thought content present Insight: Fair insight present (Psych) Judgement: Fair judgement present (Psych) Results AMB Urinalysis, Automated UA Leukoctes 0 Vickie/uL Last Edit by Silverio Cono on 12/05/23 09:15 UA Nitrite Negative Last Edit by Silverio Coon on 12/05/23 09:15 UA Urobilinogen 0.2 mg/dL Last Edit by Bincariejohnnie Coespeedy on 12/05/23 09:15 UA Protein 0 mg/dL Last Edit by Silverio Carolinspeedy on 12/05/23 09:15 UA pH 6.0 Last Edit by Silverio Carolinspeedy on 12/05/23 09:15 UA Blood 0 Dejon/uL Last Edit by Silverio Carolinspeedy on 12/05/23 09:15 UA Specific [place] 1.020 Last Edit by Binneri Carolinspeedy on 12/05/23 09:15 UA Ketone Negative Last Edit by Silverio Carolinspeedy on 12/05/23 09:15 UA Bilirubin 0 mg/dL Last Edit by Silverio Carolinspeedy on 12/05/23 09:15 UA Glucose 0 mg/dL Last Edit by Silverio Coon on 12/05/23 09:15 Results Reviewed Results Reviewed: Laboratory Last Values Urine pH (Auto) 6.0 12/05/23 09:14 Specific [place] (Auto) 1.020 12/05/23 09:14 Urine Protein (Auto) 0 mg/dL 12/05/23 09:14 Glucose (UA)(Auto) 0 mg/dL 12/05/23 09:14 Urine Ketones (Auto) Negative 12/05/23 09:14 Urine Blood (Auto) 0 Dejon/uL 12/05/23 09:14 Urine Nitrite (Auto) Negative 12/05/23 09:14 Urine Bilirubin (Auto) 0 mg/dL 12/05/23 09:14 Urine Urobilinogen (Auto) 0.2 mg/dL 12/05/23 09:14 Leukocyte Esterase (Auto) 0 Vickie/uL 12/05/23 09:14 Assessment & Plan Assessment & Plan (1) Ejaculatory disorder: Code(s): N53.19 - Other ejaculatory dysfunction Category: Medical Plan In office urinalysis results reviewed with the patient today; as noted above. Will obtain retroperitoneal ultrasound for further assessment evaluation. Will attempt to obtain previous scrotal ultrasound and PSA from PCP for continuity of care. Patient currently denies any bothersome urinary issues or concerns. He reports be happy with current voiding parameters. Discussed potential causes for ejaculatory disorders. Discussed aspermia can be related to diabetes, neurological disorders, previous surgeries, and or endocrine disorders. Discussed specific medications can also cause anejaculation such as beta- blockers, antidepressants, benzodiazepines, antipsychotics, and alpha antagonist. Follow-up in 1-3 months with imaging to be completed prior; or sooner with any issues, concerns, and or questions. Orders: Orders US retroperitoneal comp Today N40.0 - Benign prostatic hyperplasia without lower urinary tract symptoms AMB Urinalysis Automated Today Z13.9 - Encounter for screening, unspecified Patient Instructions: The patient had an opportunity to ask questions regarding the treatment plan. All questions were answered. Physical exam, labs, and imaging were discussed and reviewed in detail. As well as risks, benefits, and discussion of treatment choices. No major barriers to understanding were identified. The patient expressed understanding and agreement with the above treatment plan. The patient was made aware they should contact our office by phone for worsening of their current condition, the appearance of new symptoms, or with any questions or concerns. Compliance is encouraged with any medications and follow up testing that is ordered. It is a privilege to be allowed the opportunity to participate in? your urological care.? Again, if you have any questions or concerns If you have any questions or concerns please do not hesitate to contact me. The office is [phone]. This note is constructed using voice recognition software. While every effort has been made to ensure accuracy prepared foods supervisor errors may have been included. Yours sincerely, JENN Billy Coding Level of Care Code New Pt Level 4 (55049) Diagnoses Ejaculatory disorder N53.19 Time Spent (min) 35
== END 2023-12-05 09:37 | disposition home or self-care (01) ==
PROVIDERS: PCP Internal Medicine; Visit Provider Nurse Practitioner Family
DX: Z13.9 Encounter for screening, unspecified (principal); N53.19 Other ejaculatory dysfunction
CPT/HCPCS: 99204; 99214

== ENCOUNTER → 2023-12-05 08:41 | Outpatient (BNVA) | payer OTHER, SELFPAY | PROVIDERS: PCP Internal Medicine; Visit Provider Nurse Practitioner Family | DX: N53.19 Other ejaculatory dysfunction (principal) | CPT/HCPCS: 81003 ==

== ENCOUNTER → 2023-12-21 05:59 | Outpatient (BNV) | payer OTHER, SELFPAY | PROVIDERS: PCP Internal Medicine; Visit Provider Internal Medicine Cardiovascular Disease | DX: R00.1 Bradycardia, unspecified (principal) | CPT/HCPCS: 93010 ==

== ENCOUNTER 2023-12-21 06:00 | Day surgery (SDC) | payer OTHER, SELFPAY ==
--- NOTE | 2023-12-20 13:56 | HO.ANESPROP2 ---
Documented by User: Julianne Claros NP 12/20/23 14:00 HPI - Anesthesia Eval Consult details Narrative: 73yo M for Spinal Cord Stimulation Trial (Sacral position) s/p SI joint injection 08/2023 with TIVA Letter of optimization by [facility] cardiology Follows [facility] cardiology. Last office eval 02/2023. Denies any cardiac symptoms and stable for 1 year f/u Pacer in situ (SSS) - implanted 2017 - 09/2023 Interrogation on chart Eliquis for Afib - ok to hold 48h per cardiology [facility] Active Problems Active Problems: All Active Problems Ejaculatory disorder (Acute) Prostate enlargement (Acute) YUMIKO on CPAP (Acute) Arthritis of left hip (Acute) Mononeuropathy, unspecified (Acute) Sacroiliitis (Acute) Neuropathy of both feet (Acute) Chronic, continuous use of opioids (Acute) Chronic pain syndrome (Acute) Postlaminectomy syndrome (Acute) Cerebral ventriculomegaly (Acute) Difficulty with CPAP nasal mask use (Acute) Insomnia (Acute) Snoring (Acute) Cognitive disorder (Acute) Hyperlipidemia (Acute) Obstructive sleep apnea (Acute) HTN (hypertension) (Acute) Sick sinus syndrome (Acute) Atrial fibrillation (Acute) Anxiety (Acute) Bilateral plantar fasciitis (Acute) Past Medical History Medical History YUMIKO on CPAP Cerebral ventriculomegaly Difficulty with CPAP nasal mask use Insomnia Snoring Cognitive disorder Hyperlipidemia Obstructive sleep apnea HTN (hypertension) Sick sinus syndrome Atrial fibrillation Anxiety Pacemaker Bilateral plantar fasciitis Family History Family History Father Hypertension Mother Hypertension Breast cancer Sister Hypertension Brother Hypertension Brother Hypertension Brother Hypertension Family history of problems with anesthesia: No Surgical History Surgical History History of permanent cardiac pacemaker placement History of lumbar laminectomy for spinal cord decompression History of tonsillectomy History of bilateral knee replacement History of Problems with Anesthesia: No Social History Social History Alcohol intake: current Alcohol intake frequency: does not drink Patient Tobacco Use Status: Never used Tobacco Use of substances other than those prescribed or required for medical reasons: Yes Substance Use Type: Marijuana Substance Use Frequency: Occasionally Are you DNR?: No Advance Directives: No Advance Directives Information Provided: Yes Meds Allergies Allergy/AdvReac Type Severity Reaction Status Date / Time No Known Allergies Allergy Verified 12/21/23 06:21 Home Medications ?Medication ?Instructions ?Recorded ?Confirmed ?Last Taken ?Type apixaban 5 mg tablet 5 mg PO BID 04/26/20 12/21/23 12/18/23 History atorvastatin 40 mg tablet 40 mg PO DAILY 04/26/20 12/21/23 07/12/23 History lisinopril 10 mg tablet 10 mg PO DAILY 04/26/20 12/21/23 12/20/23 History trazodone 50 mg tablet 50 mg PO DAILY 04/26/20 12/21/23 07/12/23 History furosemide 20 mg tablet 20 mg PO DAILY 01/05/21 12/21/23 12/20/23 History escitalopram oxalate 20 mg tablet 40 mg PO DAILY 01/25/23 12/21/23 09/07/23 07:00 History Assessment and Plan Final Anesthetic Review Family History of Problems with Anesthesia: No History of Problems with Anesthesia: No Documented by User: Estuardo Fraga MD 12/21/23 08:02 [facility] Past Medical History Medical History YUMIKO on CPAP Cerebral ventriculomegaly Difficulty with CPAP nasal mask use Insomnia Snoring Cognitive disorder Hyperlipidemia Obstructive sleep apnea HTN (hypertension) Sick sinus syndrome Atrial fibrillation Anxiety Pacemaker Bilateral plantar fasciitis Family History Family History Father Hypertension Mother Hypertension Breast cancer Sister Hypertension Brother Hypertension Brother Hypertension Brother Hypertension Surgical History Surgical History History of permanent cardiac pacemaker placement History of lumbar laminectomy for spinal cord decompression History of tonsillectomy History of bilateral knee replacement Social History Social History Alcohol intake: current Alcohol intake frequency: does not drink Patient Tobacco Use Status: Never used Tobacco Use of substances other than those prescribed or required for medical reasons: Yes Substance Use Type: Marijuana Substance Use Frequency: Occasionally Are you DNR?: No Advance Directives: No Advance Directives Information Provided: Yes Meds Allergies Allergy/AdvReac Type Severity Reaction Status Date / Time No Known Allergies Allergy Verified 12/21/23 06:21 Home Medications ?Medication ?Instructions ?Recorded ?Confirmed ?Last Taken ?Type apixaban 5 mg tablet 5 mg PO BID 04/26/20 12/21/23 12/18/23 History atorvastatin 40 mg tablet 40 mg PO DAILY 04/26/20 12/21/23 07/12/23 History lisinopril 10 mg tablet 10 mg PO DAILY 04/26/20 12/21/23 12/20/23 History trazodone 50 mg tablet 50 mg PO DAILY 04/26/20 12/21/23 07/12/23 History furosemide 20 mg tablet 20 mg PO DAILY 01/05/21 12/21/23 12/20/23 History escitalopram oxalate 20 mg tablet 40 mg PO DAILY 01/25/23 12/21/23 09/07/23 07:00 History Exam Airway Mallampati Class: II TM Dist: <=3cm Neck ROM: Full Loose/Missing/Broken Teeth: No Heart: ok. see above. Lungs: ok Assessment and Plan Assessment Anesthesia Assessment: Anesthesia Plan Discussed and Chart Reviewed Final Anesthetic Review NPO: Yes ASA Class: III Final Preanesthetic Review: No Changes in Pt Med Stat, Meds/Allgs Chart Reviewed, Consent Obtained/Reviewed and Anes Risks/Benef Reviewed Patient Risk: High Procedure Risk: Intermediate Anesthetic Plan Anesthetic Plan: Agree w/ Assess. and Plan and TIVA Disposition: Standard PACU
--- NOTE | ~2023-12-21 | FL_ITS ---
EXAMINATION: XR FLUOROSCOPY WITH IMAGES CLINICAL INFORMATION: Spinal cord stimulation trial. COMPARISON: None available. TECHNIQUE: Fluoroscopy Supervised By: Dr. Kamari Beck. Fluoroscopy Time: 4.6 minutes. Cumulative Dose: 167 mGy. DAP: 22.9 Gy-cm2. Images: 2. FINDINGS: Intraoperative fluoroscopy and spot films were performed during a procedure in the OR. Some probes and wires are seen overlying the L5-S1 region. Please see Dr. Kamari Beck's report for complete details. FL/FL guidance in OR IMPRESSION: Intraoperative fluoroscopy and spot films were obtained. Please see Dr. Kamari Beck's report for complete details.
--- NOTE | 2023-12-21 05:59 | ECG_ITS ---
Test Reason : pre op Blood Pressure : / mmHG Vent. Rate : 057 BPM Atrial Rate : 057 BPM P-R Int : 184 ms QRS Dur : 090 ms QT Int : 440 ms P-R-T Axes : 036 -12 002 degrees QTc Int : 428 ms Sinus bradycardia Otherwise normal ECG No previous ECGs available Referred By: Julianne Claros Electronically Signed By:Del Asencio
[2023-12-21 06:16] VITALS: BMI 40.2
[2023-12-21 06:23] VITALS: BP 121/67; PULSE 59; RESP 16; TEMP 36.9; O2SAT 97
[2023-12-21 06:43] LABS: Hematocrit 47.5 % (42.0-52.0); Hemoglobin 15.9 g/dl (14.0-18.0); Mean Corpuscular HGB Conc 33.5 g/dl (31.0-36.0); Mean Corpuscular Hemoglobin 31.3 pg (27.0-33.0); Mean Corpuscular Volume 93.5 fL (80.0-98.0); Mean Platelet Volume 9.8 fL (9.4-12.4); Platelet Count 175 X10*3/uL (160-400); Red Blood Count 5.08 X10*6/uL (4.60-5.80); Red Cell Distribution Width 12.5 % (11.0-16.0)
[2023-12-21] MEDS: Lactated Ringers 1,000 ML 50 ML IVCONT (06:44)
[2023-12-21 06:52] LABS: Anion Gap 12 (12-20); Blood Urea Nitrogen 19 mg/dL (9-16); Calcium 9.8 mg/dL (8.4-10.2); Carbon Dioxide 28 mmol/L (22-29); Chloride 105 mmol/L (96-108); Creatinine Clr Calc Pharmacy 98.2; Estimated Glomerular Filt Rate > 60; Glucose Fasting 98 mg/dL (60-99); Potassium 4.4 mmol/L (3.3-5.1); Sodium 141 mmol/L (135-145)
--- NOTE | 2023-12-21 07:04 | MHC.SHP ---
Pre-Procedural Eval Section A - 24 Hr Update-Section A only Date of Service: 12/21/23 The patient is an INPATIENT: No Changes since office visit: Yes Patient answered all questions The patient has been examined within 24 hours of the surgical procedure. The History & Physical has been completed within 30 days and I have reviewed it.: No Section B - Complete if H&P > 30 days Chief Complaint: Postlaminectomy syndrome,chronic pain Details of Present Illness: as above Relevant Family History (Specify if Yes): No Relevant Social History: None Present Medications: see Short Stay Collaborative assessment Medical History: No relevant PMH History of Previous Operations: No relevant previous surgery Allergies: Allergies Allergy/AdvReac Type Severity Reaction Status Date / Time No Known Allergies Allergy Verified 12/21/23 06:21 Review of Systems Sugical H&P ROS: Negative: Cardiovascular, Respiratory, Neurological, Psychiatric, Hem-Onc, Allergic/Immunologic, Gastrointestinal, Genitourinary, Integumentary, Endocrine and Eyes/Ears/Nose/Throat and Yes, Specify: Constitution (morbid obesity) and Musculoskeletal (si j pain) Exam Surgical H&P Exam: Normal: HEENT, Normal: Heart, Normal: Lungs, Normal: Extremities, Normal: Abdomen, Normal: Skin and Normal: Neurological Plan Diagnosis/Plan: Unchanged I have reviewed the history and physical and performed a pertinent physical examination on my patient. No changes have occurred unless specified. Time Spent With Patient Time: Total time managing care of this patient today ____ minutes.
[2023-12-21 07:08] LABS: Prothrombin Time 12.7 SEC (11.1-13.3)
--- NOTE | 2023-12-21 07:17 | PC.NURSE ---
No preop MSRA screen needed per Dr. Beck.
[2023-12-21 08:51] VITALS: BP 122/87; PULSE 55; RESP 18; TEMP 36.9; O2SAT 93
--- NOTE | 2023-12-21 08:55 | PM.OP ---
Brief Operative Note Date of Service: 12/21/23 Pre-op diagnosis: Postlaminectomy syndrome, chronic pain syndrome, sacroiliac joint pain. Post-op diagnosis: same Procedure: Attempt of the insertion of the trialing lead of [place] scientific spinal cord stimulator into sacral canal epidural space. Implants: None Surgeon: Kamari Beck MD Was an Cyber Security Systems Engineer used for this Procedure?: No Estimated blood loss (mL): 0 Condition: stable Disposition: PACU
[2023-12-21 08:56] VITALS: BP 128/60; PULSE 55; RESP 16; O2SAT 96
--- NOTE | 2023-12-21 09:00 | W.PM.OPN ---
Operative Note Operative Note Date of Service: 12/21/23 Narrative: Mukul is very pleasant 73 years old gentleman who came to the operating room for trial of spinal cord stimulator [employer] for the treatment of pain related to postlaminectomy syndrome as well as the pain related to sacroiliitis. ?Preoperatively patient received ? cefazolin 2 g approximately 20 minutes before the procedure. After obtaining informed consent the patient was brought to the operating room, he was positioned prone on the operating table, [place] [employer] monitors were applied and patient was deeply sedated. ?Time-out was performed delineating correct site, side, the nature of the procedure, patient's allergy, preoperative antibiotic if needed.? All operating room staff was participating in OR time-out procedure. Attention was attracted today to intergluteal crease were significant amount of stool was detected. The stool was washed with Hibiclens solution and dried out with sterile towels. The presence of the swelling the intergluteal crease prevented me to consider anterograde advancement of the epidural leads through the hiatus of the sacral bone. The decision was made to attempt to perform retrograde advancement of the lead at L2-L3 and L5-S1 levels. Patient's entire back was prepped with Chloraprep twice and draped with full body fenestrated laparoscopy drape.? Sterilely draped C-arm was brought over operating field and square picture of the L2- L3-L4 -L5 and S1 vertebrae? were demonstrated on the screen.? ?Attention FIRST? was concentrated on the left L2-L3 epidural interspace. Left pedicle of the L 3 was located on the screen and the projection of the pedicle was injected with 5 cc of lidocaine 2% mixture with ropivacaine 0.5% mixture 1-1.After that 11 blade was used to make a susana on the skin.? 10 cm 14 gauge? introducer epidural needle was inserted through the susana advanced to epidural space at L2-L3 level. ? The advancement of the needle was performed on anterior posterior and lateral views.?Loss of resistance to air? technique were used to locate epidural space, guitar wire was inserted through the needle and was advanced in epidural fashion. After that epidural lead was inserted through the needle an attempt was made to advance the epidural needle in the retrograde direction. However unfortunately epidural lead was deviated because of the adhesions to the L2-L3 foramina on the right. Severe epidural adhesions prevented advancement of the epidural lead in caudal direction. ? .? The same attempt was made on L5-S1 interspace from the left with intent to insert epidural lead to the right epidural gutter below S1. However again the epidural lead was going into the foramina L5-S1 on the right and below the level of the insertion of the epidural lead it was very difficult to manipulate the lead with the driving stylette because it probably was imbedded in epidural adhesions. At this moment decision was made to stop attempts to establish epidural leads the needles and leads were removed, the surgical glue was applied to the puncture sites and they With Steri-Strips. Sterile dressing with Tegaderm was applied. The patient tolerated the procedure well. He was awakened taken outside of the operating room to recovery room.
[2023-12-21 09:01] VITALS: BP 130/80; PULSE 55; RESP 17; O2SAT 97
[2023-12-21 09:06] VITALS: BP 131/82; PULSE 55; RESP 18; O2SAT 98
[2023-12-21 09:16] VITALS: BP 144/81; PULSE 55; RESP 19; TEMP 36.9; O2SAT 98
== END 2023-12-21 09:44 | disposition home or self-care (01) ==
PROVIDERS: Nurse Practitioner; Registered Nurse Emergency; PCP Internal Medicine; Visit Provider Anesthesiology
PROC: (CPT 63650; principal; 2023-12-21 07:30)
DX: M96.1 Postlaminectomy syndrome, not elsewhere classified (principal); G89.28 Other chronic postprocedural pain; G47.33 Obstructive sleep apnea (adult) (pediatric); I10 Essential (primary) hypertension; E78.5 Hyperlipidemia, unspecified; I48.91 Unspecified atrial fibrillation; Z95.0 Presence of cardiac pacemaker; Z87.891 Personal history of nicotine dependence; Z79.891 Long term (current) use of opiate analgesic; N40.0 Benign prostatic hyperplasia without lower urinary tract symptoms; N53.19 Other ejaculatory dysfunction; Z53.09 Procedure and treatment not carried out because of other contraindication
CPT/HCPCS: 63650 ×2; 36415; 80048; 85027; 85610; 93005; C1897; J0690; J2250; J2704; J2795; J3010; Q9967

== ENCOUNTER → 2023-12-21 06:00 | Outpatient (BNV) | payer OTHER, SELFPAY | PROVIDERS: PCP Internal Medicine; Visit Provider Anesthesiology | DX: M96.1 Postlaminectomy syndrome, not elsewhere classified (principal) | CPT/HCPCS: 63650 ==

== ENCOUNTER 2023-12-26 08:47 | Outpatient (AMB) | payer OTHER, SELFPAY ==
--- NOTE | 2023-12-26 08:49 | MHC.OFFVIS ---
Vital Signs 12/26/23 08:53 Height 5 ft 10 in Weight 276 lb 2 oz BMI 39.6 BP 134/80 Blood Pressure Location Lt brachial Position Sitting Pulse 59 Pulse Source Pulse Oximeter Pulse Oximetry (%) 97 Oxygen Delivery Method Room Air Intake Visit Reasons: 3 Month F/U - LVM w/add Intake Note: Patient presents for 3 month's f/u. Allergies No Known Allergies Allergy (Verified 12/26/23 08:52) Medication List - Last Reconciled 12/26/23 by Yisel Aceves MD apixaban 5 mg PO BID atorvastatin 40 mg PO DAILY escitalopram oxalate 40 mg PO DAILY furosemide 20 mg PO DAILY gabapentin 300 mg PO BEDTIME 30 days lisinopril 10 mg PO DAILY trazodone 50 mg PO DAILY HPI Comments Details: 73y/o male comes for follow up of memory issues. No change in his memory he is still not consistent with CPAP use He is not a candidate because of his BMI and severity of his sleep apnea. He had a sleep study which was c/w severe sleep apnea AHI 50 and he is on AUtoPAP 5-15 - frequently remove his mask at night without realizing . His is interested in [employer]. His MRI brain showed global volume loss and ventriculomegaly. He denies urinary incontinence but has increased frequency and urgency . He feels there is mild worsening since last visit. He has trouble with conversations. He started noticing minor issues with short term memory issues about 2-3 years.He forgets peoples names, goes to a room and has no clue why he went there, forgets conversations, forgets to takes medications sometimes etc. He frequently forgets conversations , word finding difficulties . 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 No personality or behavior changes. He has h/o anxiety. No h/o head injury. No fh/o dementia. He used to be on clonazepam and oxycodone - 4 years ago he was tapered off clonazepam quickly and his anxiety significantly worsened.His feels his memory issues worsened since then He has trouble with sleep, diagnosed with sleep apnea and is on CPAP. [facility] Medical History YUMIKO on CPAP Cerebral ventriculomegaly Difficulty with CPAP nasal mask use Insomnia Snoring Cognitive disorder Hyperlipidemia Obstructive sleep apnea HTN (hypertension) Sick sinus syndrome Atrial fibrillation Anxiety Pacemaker Bilateral plantar fasciitis Surgical History History of permanent cardiac pacemaker placement History of lumbar laminectomy for spinal cord decompression History of tonsillectomy History of bilateral knee replacement Family History Father Hypertension Mother Hypertension Breast cancer Sister Hypertension Brother Hypertension Brother Hypertension Brother Hypertension Social History Alcohol intake: current Alcohol intake frequency: does not drink Patient Tobacco Use Status: Never used Tobacco Substance Use Type: Marijuana Physical Exam Vital Signs: Last Vital Signs Pulse 59 12/26/23 08:53 BP 134/80 12/26/23 08:53 Pulse Ox 97 12/26/23 08:53 Oxygen Delivery Method Room Air 12/26/23 08:53 BMI result Body Mass Index 39.6 Const General: cooperative and anxious Nutritional Appearance: obese Orientation/consciousness: oriented to person and oriented to place Eyes Pupils: Equal, round and reactive pupils present Neuro General: oriented to person, oriented to place, tone normal, moves all extremities and no focal motor deficits Cranial nerves: Yes Equal, round and reactive pupils present, Yes Bilaterally intact EOM present, Yes Nystagmus not present, Yes Normal facial strength present and Yes Midline tongue present Cognition (Neuro): normal cognition Gait exam (Neuro): Antalgic gait present Motor exam (neuro): 5/5 motor strength present throughout and Normal motor muscle tone present throughout Coordination: [id number] test normal Psych Affect: Anxious affect present Orientation What is the (year) (season) (date) (day) (month)?: year, season, date, day and month Where are we (state) (county) (town or city) (hospital) (floor)?: state, county, town or city, hospital/clinic and floor Registration Name of 3 unrelated objects clearly and slowly, then ask patient to repeat all 3 of them. (1st repeat determines score. Make sure they can repeat all three): object 1, object 2 and object 3 Attention & Calculation (CHOOSE ONE) Spell WORLD backwards (DLROW): 5 letters Recall Ask patient to repeat the 3 items from question #3.: object 1 and object 2 Language Show patient a wristwatch & ask what it is. Repeat for pencil.: watch and pencil Ask the patient to repeat the phrase 'No ifs, ands, or buts' after you.: correct Ask the patient to 'take a piece of paper with their right hand' 'fold paper in half' 'place paper on floor': take paper in right hand, fold paper in half and place paper on floor Print the sentence 'CLOSE YOUR EYES' on a piece. If patient actually closes eyes then score.: followed written direction Give patient a blank piece of paper & ask to write a sentence. Score if it contains a noun & verb.: sentence contains subject and verb Ask patient to copy figure of intersecting pentagons exactly. Score if all 10 angles & 2 intersects are included.: all 10 angles present & 2 are intersected Score Score: 29 Assessment & Plan Assessment & Plan (1) Cognitive disorder: Code(s): F09 - Unspecified mental disorder due to known physiological condition Category: Medical (2) Insomnia: Code(s): G47.00 - Insomnia, unspecified Category: Medical (3) YUMIKO on CPAP: Code(s): G47.33 - Obstructive sleep apnea (adult) (pediatric) Category: Medical Plan MRI brain results discussed - seen by neurosurgery . continue lexapro 40mg qd continue Cognitive therapy Increase physical activity Continue CPAP 5-15 cm and compliance stressed. will refer him to DEntal sleep medicine - for oral appliance melatonin 1-3 mgq hs Orders: Referrals Sleep Medicine Referral G47.33 - Obstructive sleep apnea (adult) (pediatric) Coding Level of Care Code Est Pt Level 4 (96486) Complex EM visit Add On G2211 Diagnoses Cognitive disorder F09 Insomnia G47.00 YUMIKO on CPAP G47.33
[2023-12-26 08:53] VITALS: BP 134/80; PULSE 59; O2SAT 97; BMI 39.6
== END 2023-12-26 09:17 | disposition home or self-care (01) ==
PROVIDERS: PCP Internal Medicine; Visit Provider Psychiatry & Neurology Neurology
DX: R41.89 Other symptoms and signs involving cognitive functions and awareness (principal); G47.00 Insomnia, unspecified; G47.33 Obstructive sleep apnea (adult) (pediatric)
CPT/HCPCS: 99214; G2211

== ENCOUNTER → 2023-12-26 08:47 | Outpatient (BNVA) | payer OTHER, SELFPAY | PROVIDERS: PCP Internal Medicine; Visit Provider Psychiatry & Neurology Neurology ==

== ENCOUNTER 2023-12-27 09:19 | Outpatient (AMB) | payer OTHER, SELFPAY ==
--- NOTE | 2023-12-27 09:20 | A.OFFVIS_ITS ---
Vital Signs 12/27/23 09:26 Height 5 ft 10 in Weight 276 lb 2 oz BMI 39.6 BP 126/63 Blood Pressure Location Lt brachial Position Sitting Respiration 16 Pulse 61 Pulse Source Pulse Oximeter Pulse Oximetry (%) 96 Oxygen Delivery Method Room Air Intake Visit Reasons: S/p [employer] SCS Trial 12/21/23 Intake Note: Patient comes in for post-op appointment. Reports pain 4/10. Allergies No Known Allergies Allergy (Verified 12/27/23 09:26) HPI Comments Details: Angel is in my office to discuss the results of the attempt of the [employer] spinal cord stimulator insertion trial. The trial itself was very difficult with the attempts to insert the electrodes into retrograde direction. Possibility in theory existed to perform anterograde injection from the sacral hiatus going into the sacral canal however the patient's skin in the area was contaminated and the decision was made not to proceed with this trial. We discussed today possibility of washing this area for 7 days at least once a day with Betadine as well as worsening each time when he has a BM. After that we can attempt to perform the procedure in anterograde duration again. I will schedule him tentatively for the procedure repeat of the trial of [employer] spinal cord stimulator. Prior: On 07/12/2023 he went for diagnostic sacroiliac joint innervation injection for the left joint. He reported today 8 hours of complete pain relief. He reported better mobility, better social interactions, better activities of daily living. He reported continued pain relief for few days after the procedure..PNS Curonix this discussed and he went for psych evaluatio n. However unfortunately his insurance company denied PNS cure on X to treat his pain. I had to perform sacroiliac joint steroid injections however left sacroiliac joint injection resulted only in 2 weeks of pain relief and right sacroiliac joint injection resulted only in 3 days of pain relief. I offered him today [employer] spinal cord stimulator trial in the attempt to control his pain. He agreed to try this procedure. He also reports difficulty with urination and ejaculation. He requests me to refer him to urologist. I will send him to our Urology. He exhibits signs of the forgetfulness and difficulty with mental tasks. He was sent for the surgical evaluation in the order to potentially consider [employer] shunt. 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 Prior: left therapeutic sacroiliac joint injection in September of 2022. He reports pain before the injection is 5 to 6/10. He reports pain after the injection is 1 to 2/10. During the injection I encountered significant difficulty with placing my needle into the sacroiliac joint. Angel is under observation in this office for postlaminectomy syndrome.? He is no longer on chronic opioid therapy in this office.? He was suspended in our opioid program for refusal to show up for UDS.? He is suspended until December of 2022. He was sent for hip x-ray and lumbar spine x-ray and results are dictated as below.? I performed for him left hip injection and he reports only few days of pain improvement.? He reports that in the past he received left sacroiliac joint injection with [facility].? I offered him to try to repeat this injection diagnostically in the order to possibly diagnose his sacroiliac joint pain.? It may open?up some avenues? to treat his chronic pain . lower back pain without radiations? also pain in bilateral knees which is separate from the back pain. his back pain is associated with numbness on lateral lower legs below the level of the knees. numbness in constant, does not change. Onset in 1989 after fall trauma.? History of 2 back surgeries in 1900 and 2005. laminectomies of L4-L5 and L5-S1 . He had 3 knee operations and 2 total knee replacements to address his pain. ?[facility] : multiple cortisone injections done without any success. They insisted to continue those injections. ? ? On x-ray: ?14 degree dextroscoliosis within effects at L3 intervertebral disc space narrowing is most prominently seen at L5-S1 with 80% disc space elimination relative to the cephalad levels. T12-L1 appears to have considerable degree of disc space narrowing no fracture or tumor no hardware. He had MRI 5 years ago at [facility]. [facility] Medical History YUMIKO on CPAP Cerebral ventriculomegaly Difficulty with CPAP nasal mask use Insomnia Snoring Cognitive disorder Hyperlipidemia Obstructive sleep apnea HTN (hypertension) Sick sinus syndrome Atrial fibrillation Anxiety Pacemaker Bilateral plantar fasciitis Surgical History History of permanent cardiac pacemaker placement History of lumbar laminectomy for spinal cord decompression History of tonsillectomy History of bilateral knee replacement Family History Father Hypertension Mother Hypertension Breast cancer Sister Hypertension Brother Hypertension Brother Hypertension Brother Hypertension Social History Alcohol intake: current Alcohol intake frequency: does not drink Patient Tobacco Use Status: Never used Tobacco Substance Use Type: Marijuana Review of Systems Const All systems reviewed & are unremarkable except as noted in HPI and below Physical Exam Vital Signs: Last Vital Signs Pulse 61 12/27/23 09:26 Resp 16 12/27/23 09:26 BP 126/63 12/27/23 09:26 Pulse Ox 96 12/27/23 09:26 Oxygen Delivery Method Room Air 12/27/23 09:26 BMI result Body Mass Index 39.6 Const General: cooperative, healthy appearing, comfortable, no acute distress, alert and well groomed Nutritional Appearance: obese Orientation/consciousness: patient oriented x3 HEENT Head: Yes normocephalic and Yes atraumatic Ears: hearing grossly normal bilaterally Eyes General: appearance normal, both eyes and all related structures Eyelids: Yes eyelids normal Pupils: Equal, round and reactive pupils present EOM: EOMs intact bilaterally Neck Neck: Yes normal visual inspection and Yes no JVD Resp Effort & Inspection: normal respiratory effort, able to speak in complete sentences and no audible wheezes Cardio Jugular venous distension: no JVD Back/Spine/Pelvis Other: Tenderness on palpation on the projection of the left sacroiliac joint. On the left Positive Gaenslen test positive Rangel test positive pelvis compression test and negative pelvis destruction test. Neuro General: patient oriented x3, gait normal and moves all extremities Cranial nerves: Yes Equal, round and reactive pupils present Psych Appearance: grossly normal Mental Status: mental status grossly normal Speech and movement: Normal speech and movement present Assessment & Plan Assessment & Plan (1) Postlaminectomy syndrome: Code(s): M96.1 - Postlaminectomy syndrome, not elsewhere classified Category: Medical (2) Chronic pain syndrome: Code(s): G89.4 - Chronic pain syndrome Category: Medical (3) Chronic, continuous use of opioids: Code(s): F11.90 - Opioid use, unspecified, uncomplicated Category: Medical (4) Sacroiliitis: Code(s): M46.1 - Sacroiliitis, not elsewhere classified Category: Medical (5) Bilateral plantar fasciitis: Code(s): M72.2 - Plantar fascial fibromatosis Category: Medical (6) Neuropathy of both feet: Code(s): G57.93 - Unspecified mononeuropathy of bilateral lower limbs Category: Medical (7) Mononeuropathy, unspecified: Code(s): G58.9 - Mononeuropathy, unspecified Category: Medical (8) Prostate enlargement: Code(s): N40.0 - Benign prostatic hyperplasia without lower urinary tract symptoms Category: Medical (9) Ejaculatory disorder: Code(s): N53.19 - Other ejaculatory dysfunction Category: Medical Plan Excellent results of diagnostic left sacroiliac joint innervation injection however unfortunately after we were planning to perform Curonix PNS on the patient his insurance company denied the procedure because it is ?experimental ?. Attempt to treat the pain with therapeutic sacroiliac joint injection resulted with few weeks of pain relief on the left side and few days of pain relief on the right side. he also reported pain and delay with urination and discomfort with ejaculation. To treat his problem from sacroiliac joint pain I scheduled him for a trial of spinal cord stimulator [employer]. Unfortunately the attempt to insert the electrodes retrograde failed. The antegrade insertion was not possible because the side of the skin at this area was contaminated. I prescribed patient Betadine solution to treat the area of the skin at the insertion at least once a day and once after each BM. I will schedule him for the repeat of the trial of [employer] SCS. Medications: New povidone-iodine 10% (Betadine) 1 appl topical BID-QID PRN 237 mL 1RF disinfection 15 days Coding Level of Care Code Est Pt Level 3 (30739) Diagnoses Postlaminectomy syndrome M96.1 Chronic pain syndrome G89.4 Chronic, continuous use of opioids F11.90 Sacroiliitis M46.1 Bilateral plantar fasciitis M72.2 Neuropathy of both feet G57.93 Mononeuropathy, unspecified G58.9 Prostate enlargement N40.0 Ejaculatory disorder N53.19
[2023-12-27 09:26] VITALS: BP 126/63; PULSE 61; RESP 16; O2SAT 96; BMI 39.6
== END 2023-12-27 09:41 | disposition home or self-care (01) ==
PROVIDERS: PCP Internal Medicine; Visit Provider Anesthesiology
DX: G89.4 Chronic pain syndrome (principal); M96.1 Postlaminectomy syndrome, not elsewhere classified; M46.1 Sacroiliitis, not elsewhere classified; Z79.891 Long term (current) use of opiate analgesic; M72.2 Plantar fascial fibromatosis; G57.93 Unspecified mononeuropathy of bilateral lower limbs; G58.9 Mononeuropathy, unspecified; N40.0 Benign prostatic hyperplasia without lower urinary tract symptoms; N53.19 Other ejaculatory dysfunction
CPT/HCPCS: 99024

== ENCOUNTER → 2023-12-27 09:19 | Outpatient (BNVA) | payer OTHER, SELFPAY | PROVIDERS: PCP Internal Medicine; Visit Provider Anesthesiology ==

== ENCOUNTER 2024-01-28 10:30 | Outpatient (RCR) | payer OTHER, SELFPAY ==
--- NOTE | 2024-06-15 14:29 | MHC.SL.SOA ---
Referring Provider: Dr. Aceves Reason for Referral: Cognitive Therapy Date of Plan of Treatment: 09/05/23 Onset of Symptoms/Illness: 09/05/23 Date Treatment Started: 09/05/23 Medical Diagnosis: Cognitive impairment Primary Speech Language Diagnosis: R41.841 Cognitive communication disorder Reason for Visit: Non-billable event Subjective: This is an administrative discharge for Angel Alberts (: 52). Angel was initially evaluated on 09/05/23. He was seen for 6 visits between 11/26/23 to 01/28/24. He was consistently accompanied by his who attended each visit and was primarily responsible for carry-over of treatment gains. Objective: The following goals were targeted during his treatment period: STG1: Angel will use a rehearsal strategy to recall a detail or specific information from visual or verbal presented information with 80% accuracy STG2: Angel will use a visualization strategy to recall a detail or specific information from verbally presented information with 80% accuracy. STG3: Angel will use an association strategy to retain and retrieve specific information from visually or verbally presented information with 80% accuracy. STG4: Given a specific conversational topic, Angel will sustain speaking on the topic with a conversational partner for at least three to four conversational turns. Assessment: Angel at time would struggle with some of the cognitively stimulating tasks that were presented to him. He would make statement such as, I used to be able to do this , or I should be able to do this . He was counseled to promote positive self-talk when encountering a new challenge. More complex logic puzzle involving multiple steps to solved proved to be too difficult for him. We did have good success in introducing him to [facility]. He started with 4 x 4 grids and advanced to 6 x 6 grids. At our last meeting, his said this would be something that he would be motivated to do after discharge. Plan: Goal # : Angel will use a rehearsal strategy to recall a detail or specific information from visual or verbal presented information with 80% accuracy Status of Goal: Discharge Goal Goal # : Angel will use a visualization strategy to recall a detail or specific information from verbally presented information with 80% accuracy. Status of Goal: Discharge Goal Goal # : Angel will use an association strategy to retain and retrieve specific information from visually or verbally presented information with 80% accuracy. Status of Goal: Discharge Goal Goal # : Given a specific conversational topic, Angel will sustain speaking on the topic with a conversational partner for at least three to four conversational turns. Status of Goal: Discharge Goal Seen by: Graduate/Clinical Fellow: No Supervisory Statement: N/a Speech Language Pathologist: Davidson Gilman M.A., CCC-MANAGER [employer]ANCE
== END 2024-06-16 11:42 | disposition home or self-care (01) ==
LOC: HO.SH 10:30
PROVIDERS: PCP Internal Medicine; Visit Provider Psychiatry & Neurology Neurology
DX: F09 Unspecified mental disorder due to known physiological condition (principal); R41.841 Cognitive communication deficit
CPT/HCPCS: 92507

== ENCOUNTER 2024-03-03 15:31 | Outpatient (AMB) | payer OTHER, SELFPAY ==
--- NOTE | 2024-03-03 15:32 | A.OFFVIS_ITS ---
Intake Visit Reasons: Per discussion Allergies No Known Allergies Allergy (Verified 03/03/24 15:32) HPI Comments Details: Angel is on the phone to discuss further treatment. In the attempt to treat his pain from left sacroiliac joint I was planning to do cure on X PNS. His insurance company denied this procedure. I tried to perform [place] [employer] spinal cord stimulator in the caudal canal positioned but due to extensive adhesions secondary to prior surgery at L5-S1 I fail to insert electrodes retrograde direction. I was contemplating caudal canal insertion of the spinal cord stimulators leads through the caudal hiatus however due to patient's anatomy and proximity of the insertion site to the anal area decided against it. We discussed possibility of different other treatments. He was sent by primary care physician for the MRI of the lumbar spine and he was discovered with L2-L3 spinal stenosis. He was referred to [facility] for the appointment. This appointment is pending. He requests me to prescribe non opioid medications. He was in my office under chronic opioid program however he was suspended indefinitely. I offered him to prescribe gabapentin 400 mg t.i.d.. He agreed to go for this medication. In the past he received gabapentin up to 300 mg t.i.d. without significant side effects however later on it was decreased to 300 mg q.d.. Prior: On 07/12/2023 he went for diagnostic sacroiliac joint innervation injection for the left joint. He reported today 8 hours of complete pain relief. He reported better mobility, better social interactions, better activities of daily living. He reported continued pain relief for few days after the procedure..PNS Curonix this discussed and he went for psych evaluation. However unfortunately his insurance company denied PNS cure on X to treat his pain. I had to perform sacroiliac joint steroid injections however left sacroiliac joint injection resulted only in 2 weeks of pain relief and right sacroiliac joint injection resulted only in 3 days of pain relief. I offered him today [place] [employer] spinal cord stimulator trial in the attempt to control his pain. He agreed to try this procedure. He also reports difficulty with urination and ejaculation. He requests me to refer him to urologist. I will send him to our Urology. He exhibits signs of the forgetfulness and difficulty with mental tasks. He was sent for the surgical evaluation in the order to potentially consider ULTRASOUND TECHNOL shunt. 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 Prior: left therapeutic sacroiliac joint injection in September of 2022. He reports pain before the injection is 5 to 6/10. He reports pain after the injection is 1 to 2/10. During the injection I encountered significant difficulty with placing my needle into the sacroiliac joint. Angel is under observation in this office for postlaminectomy syndrome.? He is no longer on chronic opioid therapy in this office.? He was suspended in our opioid program for refusal to show up for UDS.? He is suspended until December of 2022. He was sent for hip x-ray and lumbar spine x-ray and results are dictated as below.? I performed for him left hip injection and he reports only few days of pain improvement.? He reports that in the past he received left sacroiliac joint injection with [facility].? I offered him to try to repeat this injection diagnostically in the order to possibly diagnose his sacroiliac joint pain.? It may open?up some avenues? to treat his chronic pain . lower back pain without radiations? also pain in bilateral knees which is separate from the back pain. his back pain is associated with numbness on lateral lower legs below the level of the knees. numbness in constant, does not change. Onset in 1989 after fall trauma.? History of 2 back surgeries in 1900 and 2005. laminectomies of L4-L5 and L5-S1 . He had 3 knee operations and 2 total knee replacements to address his pain. ?[facility] : multiple cortisone injections done without any success. They insisted to continue those injections. ? ? On x-ray: ?14 degree dextroscoliosis within effects at L3 intervertebral disc space narrowing is most prominently seen at L5-S1 with 80% disc space elimination relative to the cephalad levels. T12-L1 appears to have considerable degree of disc space narrowing no fracture or tumor no hardware. He had MRI 5 years ago at [facility]. [facility] Medical History YUMIKO on CPAP Cerebral ventriculomegaly Difficulty with CPAP nasal mask use Insomnia Snoring Cognitive disorder Hyperlipidemia Obstructive sleep apnea HTN (hypertension) Sick sinus syndrome Atrial fibrillation Anxiety Pacemaker Bilateral plantar fasciitis Surgical History History of permanent cardiac pacemaker placement History of lumbar laminectomy for spinal cord decompression History of tonsillectomy History of bilateral knee replacement Family History Father Hypertension Mother Hypertension Breast cancer Sister Hypertension Brother Hypertension Brother Hypertension Brother Hypertension Social History Alcohol intake: current Alcohol intake frequency: does not drink Patient Tobacco Use Status: Never used Tobacco Substance Use Type: Marijuana Review of Systems Const All systems reviewed & are unremarkable except as noted in HPI and below Telehealth Telehealth Telehealth Platform: Telephone Location of provider rendering services: practice address Location of patient: address on file Patient Identification confirmed using: Name, : Yes Telehealth method: voice only Patient verbally consented to treatment: Yes Patient verbally consented to billing insurance company: Yes Patient informed of any privacy concerns related to visit: Yes Assessment & Plan Assessment & Plan (1) Postlaminectomy syndrome: Code(s): M96.1 - Postlaminectomy syndrome, not elsewhere classified Category: Medical (2) Chronic pain syndrome: Code(s): G89.4 - Chronic pain syndrome Category: Medical (3) Chronic, continuous use of opioids: Code(s): F11.90 - Opioid use, unspecified, uncomplicated Category: Medical (4) Sacroiliitis: Code(s): M46.1 - Sacroiliitis, not elsewhere classified Category: Medical (5) Bilateral plantar fasciitis: Code(s): M72.2 - Plantar fascial fibromatosis Category: Medical (6) Neuropathy of both feet: Code(s): G57.93 - Unspecified mononeuropathy of bilateral lower limbs Category: Medical (7) Mononeuropathy, unspecified: Code(s): G58.9 - Mononeuropathy, unspecified Category: Medical (8) Prostate enlargement: Code(s): N40.0 - Benign prostatic hyperplasia without lower urinary tract symptoms Category: Medical (9) Ejaculatory disorder: Code(s): N53.19 - Other ejaculatory dysfunction Category: Medical Plan Excellent results of diagnostic left sacroiliac joint innervation injection however unfortunately after we were planning to perform Curonix PNS on the patient his insurance company denied the procedure because it is ?experimental ?. Attempt to treat the pain with therapeutic sacroiliac joint injection resulted with few weeks of pain relief on the left side and few days of pain relief on the right side. he also reported pain and delay with urination and discomfort with ejaculation. To treat his problem from sacroiliac joint pain I scheduled him for a trial of spinal cord stimulator [place] [employer]. Unfortunately the attempt to insert the electrodes retrograde failed. I decided against anterograde insertion of the [place] [employer] electrodes through the caudal hiatus because of the proximity of the insertion site to his anal area. He requests me to prescribe some medications him today. Gabapentin was prescribed to him in the past without side effects. I offered him to prescribe today gabapentin 400 mg t.i.d.. Medications: New 2 gabapentin 400 mg PO TID 90 caps 5RF 30 days Discontinued gabapentin Discontinued Reason: Doctor's Order 300 mg PO BEDTIME 30 days 30 caps 12RF Patient Instructions: I here by testify that I spent 32 minutes in conversation with this patient as well as planning his care, ordering medications, organizing this note. Coding Level of Care Code Est Pt Level 4 (36321) Diagnoses Postlaminectomy syndrome M96.1 Chronic pain syndrome G89.4 Chronic, continuous use of opioids F11.90 Sacroiliitis M46.1 Bilateral plantar fasciitis M72.2 Neuropathy of both feet G57.93 Mononeuropathy, unspecified G58.9 Prostate enlargement N40.0 Ejaculatory disorder N53.19
== END 2024-03-03 15:52 | disposition home or self-care (01) ==
LOC: HO.PMC 15:31
PROVIDERS: PCP Internal Medicine; Visit Provider Anesthesiology
DX: G89.4 Chronic pain syndrome (principal); M96.1 Postlaminectomy syndrome, not elsewhere classified; M46.1 Sacroiliitis, not elsewhere classified; Z79.891 Long term (current) use of opiate analgesic; M72.2 Plantar fascial fibromatosis; G57.93 Unspecified mononeuropathy of bilateral lower limbs; G58.9 Mononeuropathy, unspecified; N40.0 Benign prostatic hyperplasia without lower urinary tract symptoms; N53.19 Other ejaculatory dysfunction
CPT/HCPCS: 99214

== ENCOUNTER → 2024-03-03 15:31 | Outpatient (BNVA) | payer OTHER, SELFPAY | PROVIDERS: PCP Internal Medicine; Visit Provider Anesthesiology ==

== ENCOUNTER 2024-07-08 08:42 | Outpatient (AMB) | payer OTHER, SELFPAY ==
--- NOTE | 2024-07-08 08:55 | MHC.OFFVIS ---
Vital Signs 07/08/24 08:56 Height 5 ft 10 in Weight 286 lb BMI 41.0 BP 138/84 Blood Pressure Location Rt brachial Position Sitting Intake Visit Reasons: Follow up Intake Note: Patient presents for follow up. Allergies No Known Allergies Allergy (Verified 07/08/24 08:59) Medication List - Last Reconciled 07/08/24 by Yisel Aceves MD apixaban 5 mg PO BID atorvastatin 40 mg PO DAILY escitalopram oxalate 40 mg PO DAILY furosemide 20 mg PO DAILY gabapentin 400 mg PO TID 30 days lisinopril 10 mg PO DAILY povidone-iodine 10% (Betadine) 1 appl topical BID-QID PRN 15 days trazodone 50 mg PO DAILY HPI Comments Details: 73y/o male comes for follow up of memory issues. No change in his memory . when he wakes up on somedays he seems confused but doing OK He is not candidate for jose appliance. he is using his CPAP but on somedays takes it off in the middle of the night. He is not a candidate for [employer] because of his BMI and severity of his sleep apnea. He had a sleep study which was c/w severe sleep apnea AHI 50 and he is on AUtoPAP 5-15 - frequently remove his mask at night without realizing . He had back surgery 1 week ago and is doing well,he stopped his oxycodone. History from last visit-His MRI brain showed global volume loss and ventriculomegaly. He denies urinary incontinence but has increased frequency and urgency . He feels there is mild worsening since last visit. He has trouble with conversations. He started noticing minor issues with short term memory issues about 2-3 years.He forgets peoples names, goes to a room and has no clue why he went there, forgets conversations, forgets to takes medications sometimes etc. He frequently forgets conversations , word finding difficulties . 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 No personality or behavior changes. He has h/o anxiety. No h/o head injury. No fh/o dementia. He used to be on clonazepam and oxycodone - 4 years ago he was tapered off clonazepam quickly and his anxiety significantly worsened.His feels his memory issues worsened since then He has trouble with sleep, diagnosed with sleep apnea and is on CPAP. [facility] Medical History YUMIKO on CPAP Cerebral ventriculomegaly Difficulty with CPAP nasal mask use Insomnia Snoring Cognitive disorder Hyperlipidemia Obstructive sleep apnea HTN (hypertension) Sick sinus syndrome Atrial fibrillation Anxiety Pacemaker Bilateral plantar fasciitis Surgical History History of back surgery History of permanent cardiac pacemaker placement History of lumbar laminectomy for spinal cord decompression History of tonsillectomy History of bilateral knee replacement Family History Father Hypertension Mother Hypertension Breast cancer Sister Hypertension Brother Hypertension Brother Hypertension Brother Hypertension Social History Alcohol intake: current Alcohol intake frequency: does not drink Patient Tobacco Use Status: Never used Tobacco Substance Use Type: Marijuana Physical Exam Vital Signs: Last Vital Signs BP 138/84 07/08/24 08:56 BMI result Body Mass Index 41.0 Const General: cooperative and anxious Nutritional Appearance: obese Orientation/consciousness: oriented to person and oriented to place Eyes Pupils: Equal, round and reactive pupils present Neuro General: oriented to person, oriented to place, tone normal, moves all extremities and no focal motor deficits Cranial nerves: Yes Equal, round and reactive pupils present, Yes Bilaterally intact EOM present, Yes Nystagmus not present, Yes Normal facial strength present and Yes Midline tongue present Cognition (Neuro): normal cognition Gait exam (Neuro): Antalgic gait present Motor exam (neuro): 5/5 motor strength present throughout and Normal motor muscle tone present throughout Coordination: [id number] test normal Assessment & Plan Assessment & Plan (1) Cognitive disorder: Code(s): F09 - Unspecified mental disorder due to known physiological condition Category: Medical (2) YUMIKO on CPAP: Code(s): G47.33 - Obstructive sleep apnea (adult) (pediatric) Category: Medical Plan MRI brain results discussed - seen by neurosurgery . continue lexapro 40mg qd continue Cognitive therapy Increase physical activity Continue CPAP 5-15 cm and compliance stressed. melatonin 1-3 mgq hs Coding Level of Care Code Est Pt Level 4 (25505) Complex EM visit Add On G2211 Diagnoses Cognitive disorder F09 YUMIKO on CPAP G47.33
[2024-07-08 08:56] VITALS: BP 138/84; BMI 41.0
--- OUTSIDE RECORDS SUMMARY | 2024-07-09 19:04 | XMS_ITS | Data Portability ---
Author Organization [place] - [facility], , [place] Address [address] [place] [address] Assessment Encounter Date Assessment Date Assessment LastModified by Organization Details LastModified Time 09/30/2019 09/30/2019 69 YO M WHO HAS BEEN PRESCRIBED OXYCODONE FOR GREATER THAN 20 YEARS, HAS LOST HIS PRESCRIBER AND WILL RUN OUT OF MEDS AT THE END OF THE MONTH. HE DOES NOT MEET DSM 5 CRITERIA FOR OUD. WILL REFER TO DR. RON FOR PAIN MED MANAGMENT, TAPER AND TRANSITION ON BUP IF THAT IS WHAT IS NEEDED. [email or web address] Not available 09/30/2019 11:31:09 Plan of Treatment Reminders Order Date Submit Date Provider Last Modified By Organization Details Last Modified Time Details Appointments None recorded. Lab CMP, serum or plasma 2019 020 gerald [email or web address] [facility], [address], [address], 0 11:01:59 CBC w/ diff 2019 020 gerald [employer], [address], [address], 0 11:01:59 gamma-gluta myl transferase (ggt), serum 2019 020 gerald [email or web address] [facility], [address], [address], 0 11:01:59 hepatic function panel, serum 2019 020 [email or web address], [address], [address], [place], [address], 0 11:02:00 hepatitis A Ab, total, serum 2019 [place] [id number] [facility] [place] [facility], [address], [place] [address], [place], [address], 0 11:02:00 HBsAg (hepatitis B surface Ag), serum 2019 [place] [id number] [facility] [place] [facility], [address], [place] [address], [place], [address], 0 11:02:00 PT/INR 2019 [place] [id number] [facility], [address], [place] [address], [place], [address], 0 11:02:00 drug screen, urine 2019 [facility], [address] [place], [address], 0 13:34:11 HIV 1+2 Ab + HIV1 p24 Ag, QL, rapid, immunoassay , serum or plasma or blood 2019 [place] [id number] [facility], [address], [place] [address], [place], [address], 0 11:02:00 hepatitis C Ab, serum 2019 020 [place] [id number] [facility], [address], [place] [address], [place], [address], 0 11:02:00 Referral None recorded. Procedures None recorded. Surgeries None recorded. Imaging None recorded. Medication Orders None recorded. Patient TargetsNo targets recorded. Patient Instructions Encounter Date Encounter Id Patient Instructions Last Modified By Organization Details Last Modified Time 09/30/2019 [id number] Abstain from opiates for 24 hours unless directed by provider; > If already taking buprenorphine, do not take a dose the day of the induction until you are in the office with your provider; > Comfort medications were recommended. If accepted, please take as prescribed to support your ability to abstain from opiates until your buprenorphine induction; > Keep your buprenorphine RX package closed until you are seen by your provider for induction unless otherwise directed; If you have problems abstaining from opiates, please call the office. As part of your individualized treatment plan and program requirement, you will need to bring your correct prescription bottle and all used and unused medication and counseling verification to each appointment; > Agree to participate in counseling and bring counseling verification to each appointment; > Agree to present for random visits; > Agree to not falsify your urine specimens. [email or web address] Not available 09/30/2019 10:28:46 Education provid ed at today's visit included: Review of patient's individualized treatment plan; Review of program policies: RX, visit, counseling and DATA compliance; Review medication administration technique; Discussion proper care of medication/safety/ lock box; Counseling re: trigger avoidance, relapse prevention and the importance of developing a sober network; Counseling re safe sex and control; Review risk of BZD and BUP, as well as ETOH; Counseling re: Discovery & Drop out prevention in early recovery. [email or web address] Not available 09/30/2019 10:28:46 Reason for Referral None Reported. Results Created Date Observation Date Name Description Value Unit Range Abnormal Flag Note LastModifiedBy Organization Detail LastModifiedTime 09/30/1909/30/2019 drug scree n, urine amphetamine Negati ve 100 Elect kenyatta lakhani d by GRIFFIN SANCHEZ Not Available [employer] ([employer] [facility] [address] [place], [address], 10/01/2019 13:34:11 09/30/19 20 09/30/2019 drug scree n, urine benzodiazepi ne Negati ve 100 Not Available [facility] [address] [place], [address], 10/01/2019 13:34:11 09/30/19 20 09/30/2019 drug scree n, urine buprenorphin e Negati ve 100 abnormal Not Available [place] [address] [place], [address], 10/01/2019 13:34:11 09/30/19 20 09/30/2019 drug scree n, urine cannabinoid Positi ve 100 abnormal Not Available [place] [address] [place], [address], 10/01/2019 13:34:11 09/30/19 20 09/30/2019 drug scree n, urine cocaine metab. Negati ve 100 Not Available [place] [address] [place], [address], 10/01/2019 13:34:11 09/30/19 20 09/30/2019 drug scree n, urine methadone Negati ve 100 Not Available [place] [address] [place], [address], 10/01/2019 13:34:11 09/30/19 20 09/30/2019 drug scree n, urine opiates Negati ve 100 Not Available [place] [address] [place], [address], 10/01/2019 13:34:11 09/30/19 20 09/30/2019 drug scree n, urine oxycodone Positi ve 100 abnormal Not Available [place] [address] [place], [address], 10/01/2019 13:34:11 09/30/19 20 09/30/2019 drug scree n, urine ethanol <10, <10 mg/dL <10 Not Available [place] [address] [place], [address], 10/01/2019 13:34:11 09/30/19 20 09/30/2019 drug scree n, urine fentanyl Negati ve 100 Not Available [place] [address] [place], [address], 10/01/2019 13:34:11 09/30/19 20 09/30/2019 drug scree n, urine creatinine 31.8 mg/dL >20 Not Available [employer] [facility] [address] [place], [address], 10/01/2019 13:34:11 09/30/19 20 09/30/2019 drug scree n, urine specific gravity 1.004 1.003- 1.035 Not Available [facility] [address] [place], [address], 10/01/2019 13:34:11 09/30/19 20 09/30/2019 drug scree n, urine pH 8.10 4.5-9. 0 Not Available [place] [address] [place], [address], 10/01/2019 13:34:11 Result Notes None recorded. Procedures Surgical History Date Name Laterality Status Provider Name and Address Organization Details Recorded Time 09/30/2019 [address], G0480, G0481 completed [place], 09/30/2019 10:28:46 Imaging Results None recorded. Procedure Notes None recorded. Medical Equipment None Reported. Vitals Date Recorded Body temperature Oxygen saturation Oxygen saturation in Arterial blood by Pulse oximetry Heart rate Systolic blood pressure Diastolic blood pressure Provider Name and Address Organization Details Last Updated DateTime 0 97.7 [degF] 96 % 96 % 60 /min 146 mm[Hg] 82 mm[Hg] [place], 0 10:35:42 Social History None recorded. Functional Status None recorded. Mental Status None recorded. Family History Nothing Reported. Medical History No medical history recorded. Past Encounters Encounter ID Performer Location Encounter Start Date Encounter Closed Date Diagnosis/Indication Diagnosis SNOMED-CT Code Diagnosis ICD10 Code [id number] Janel Sanchez MD [place] [address] [facility] [place] [address] 09/30/2019 09:42:36 09/30/2019 11:25:23 Opioid dependence 89626379 F11.20 Health Concerns Section Related Observation LastModified by Organization Detai ls LastModified Time None Recorded Concern Status LastModified by Organization Details LastModified Time None Recorded Advance Directives Directive None Recorded Payers Encounter Date Sequence Insurance Name Policy Number Policy Lopez Covered Member ID Lopez Member ID Guarantor Name 09/30/2019 1 [facility] [employer] [facility] ([employer]) [id number] Angel Alberts [id number] Angel Alberts Notes Date Note Type Note Provider Name and Address Organization Details Recorded Time 09/30/2019 text/html Initial MAT HPI The patient presents today seeking outpatient treatment for {{opiate* alcohol bot h opiate and alcohol}} dependence. Current readiness for treatment/stage of change is described as {{pre-contemplation c ontemplation preparat ion* action maintenan ce}}. Onset of substance dependence, beginning with first substance used and all illicit and/or prescription abuse to date and including current substances: {{20 YEARS# CLICK TO FREE TEXT}}. Current or most recent route of primary substance use is described as {{oral* intranasal sk in popping intravenous s moking}}. The patient {{denies* reports}} a history of IV drug use. The patient {{denies* reports}} a history of overdose. The patient {{denies* reports}} a history of witnessing an overdose. The patient {{denies* reports}} having ever used or been prescribed Methadone. The patient {{denies* reports}} having ever used or been prescribed Buprenorphine. Attempts to stop including past and/or most recent: > Inpatient detox: {{Y N*}} > Residential and/or Sober Housing: {{Y N*}} > Periods of sobriety during incarceration: {{Y N*}} > Intensive Outpatient Program: {{Y N*}} > Partial Hospitalization Program: {{Y N*}} > Medication assisted treatment program(s): {{Y N*}} Janel Sanchez MD [address] [place] [address], [id number], [facility] [employer] 09/30/2019 11:31:22
--- OUTSIDE RECORDS SUMMARY | 2024-07-09 19:05 | XMS_ITS ---
Author Name [facility] Organization Unknown History of Medication Use Medication Directions Dispensed Refills Start Date End Date Stat escitalopram (LEXAPRO) 10 MG tablet Take 10 mg by mouth daily. 12/25/2022 active traMADol (ULTRAM) 50 MG tablet Take 1 tablet (50 mg total) by mouth 3 times daily (every 8 hours) as needed for moderate pain. 12/25/2022 aborted apixaban (ELIQUIS) 5 MG tablet Take 5 mg by mouth 2 (two) times a day. 12/25/2022 active oxyCODONE-acetaminop hen (PERCOCET) 10-325 mg per tablet Take 1 tablet by mouth every 4 (four) hours as needed for severe pain (3x daily). 12/25/2022 aborted oxyCODONE (OXY-IR) 5 MG capsule Take 5 mg by mouth 4 times daily (every 6 hours) as needed for severe pain. 12/25/2022 aborted oxyCODONE-acetaminop hen (PERCOCET) 10-325 mg per tablet Take 1 tablet by mouth every 4 (four) hours as needed for severe pain (3x daily). 12/25/2022 aborted hydrOXYzine HCl (ATARAX) 25 MG tablet hydroxyzine HCl 25 mg tablet 12/25/2022 active amoxicillin-clavulan ate (AUGMENTIN) 875-125 MG per tablet Take 1 tablet by mouth 2 (two) times a day. 12/28/2022 active traZODone (DESYREL) 50 MG tablet Take 50 mg by mouth nightly. 12/25/2022 active doxycycline (VIBRAMYCIN) 100 MG capsule 12/25/2022 aborted furosemide (LASIX) 20 MG tablet Take 20 mg by mouth daily. 12/25/2022 active gabapentin (NEURONTIN) 300 MG capsule TAKE 1 CAPSULE BY MOUTH 3 TIMES A DAY FOR 30 DAYS 12/25/2022 active atorvastatin (LIPITOR) 40 MG tablet Take 40 mg by mouth daily. 12/25/2022 active lisinopril (PRINIVIL,ZeSTRIL) 10 MG tablet Take 10 mg by mouth daily. 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
== END 2024-07-08 09:16 | disposition home or self-care (01) ==
PROVIDERS: PCP Internal Medicine; Visit Provider Psychiatry & Neurology Neurology
DX: R41.89 Other symptoms and signs involving cognitive functions and awareness (principal); G47.33 Obstructive sleep apnea (adult) (pediatric)
CPT/HCPCS: 99214; G2211

== ENCOUNTER 2024-12-01 09:11 | Outpatient (AMB) | payer OTHER, SELFPAY ==
[2024-12-01 09:17] VITALS: BP 102/70; PULSE 64; O2SAT 96; BMI 40.9
--- NOTE | 2024-12-01 09:17 | A.OFFVIS_ITS ---
Vital Signs 12/01/24 09:17 Height 5 ft 10 in Weight 285 lb BMI 40.9 BP 102/70 Blood Pressure Location Rt brachial Position Sitting Pulse 64 Pulse Source Pulse Oximeter Pulse Oximetry (%) 96 Oxygen Delivery Method Room Air Intake Visit Reasons: Follow up-Conf Intake Note: patient presents for follow up sleep compliance scanned 11/23/24. Allergies No Known Allergies Allergy (Verified 12/01/24 09:21) HPI Comments Details: 74y/o male comes for follow up of memory issues. No change in his memory . when he wakes up on somedays he seems confused but doing OK He changed his mask and is doing better with CPAP and with no leak . He had a sleep study which was c/w severe sleep apnea AHI 50 and he is on AUtoPAP 5-15 -He had back surgery 5 mths ago and is doing well History from last visit-His MRI brain showed global volume loss and ventriculo megaly. He denies urinary incontinence but has increased frequency and urgency . He feels there is mild worsening since last visit. He has trouble with conversations. He started noticing minor issues with short term memory issues about 2-3 years.He forgets peoples names, goes to a room and has no clue why he went there, forgets conversations, forgets to takes medications sometimes etc. He frequently forgets conversations , word finding difficulties . 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 No personality or behavior changes. He has h/o anxiety. No h/o head injury. No fh/o dementia. He used to be on clonazepam and oxycodone - 4 years ago he was tapered off clonazepam quickly and his anxiety significantly worsened.His feels his memory issues worsened since then He has trouble with sleep, diagnosed with sleep apnea and is on CPAP. [facility] Medical History YUMIKO on CPAP Cerebral ventriculomegaly Difficulty with CPAP nasal mask use Insomnia Snoring Cognitive disorder Hyperlipidemia Obstructive sleep apnea HTN (hypertension) Sick sinus syndrome Atrial fibrillation Anxiety Pacemaker Bilateral plantar fasciitis Surgical History History of back surgery History of permanent cardiac pacemaker placement History of lumbar laminectomy for spinal cord decompression History of tonsillectomy History of bilateral knee replacement Family History Father Hypertension Mother Hypertension Breast cancer Sister Hypertension Brother Hypertension Brother Hypertension Brother Hypertension Social History Alcohol intake: current Alcohol intake frequency: does not drink Patient Tobacco Use Status: Never used Tobacco Substance Use Type: Marijuana Physical Exam Vital Signs: Last Vital Signs Pulse 64 12/01/24 09:17 BP 102/70 12/01/24 09:17 Pulse Ox 96 12/01/24 09:17 Oxygen Delivery Method Room Air 12/01/24 09:17 BMI result Body Mass Index 40.9 Const General: cooperative and anxious Nutritional Appearance: obese Orientation/consciousness: oriented to person and oriented to place Eyes Pupils: Equal, round and reactive pupils present Neuro General: oriented to person, oriented to place, tone normal, moves all extremities and no focal motor deficits Cranial nerves: Yes Equal, round and reactive pupils present, Yes Bilaterally intact EOM present, Yes Nystagmus not present, Yes Normal facial strength present and Yes Midline tongue present Cognition (Neuro): normal cognition Gait exam (Neuro): Antalgic gait present Motor exam (neuro): 5/5 motor strength present throughout and Normal motor muscle tone present throughout Coordination: [id number] test normal Orientation What is the (year) (season) (date) (day) (month)?: year, season, date, day and month Where are we (state) (county) (town or city) (hospital) (floor)?: state, county, town or city, hospital/clinic and floor Registration Name of 3 unrelated objects clearly and slowly, then ask patient to repeat all 3 of them. (1st repeat determines score. Make sure they can repeat all three): object 1, object 2 and object 3 Attention & Calculation (CHOOSE ONE) Spell WORLD backwards (DLROW): 3 letters Recall Ask patient to repeat the 3 items from question #3.: object 2 Language Show patient a wristwatch & ask what it is. Repeat for pencil.: watch and pencil Ask the patient to repeat the phrase 'No ifs, ands, or buts' after you.: correct Ask the patient to 'take a piece of paper with their right hand' 'fold paper in half' 'place paper on floor': take paper in right hand, fold paper in half and place paper on floor Print the sentence 'CLOSE YOUR EYES' on a piece. If patient actually closes eyes then score.: followed written direction Give patient a blank piece of paper & ask to write a sentence. Score if it contains a noun & verb.: sentence contains subject and verb Ask patient to copy figure of intersecting pentagons exactly. Score if all 10 angles & 2 intersects are included.: all 10 angles present & 2 are intersected Score Score: 26 Assessment & Plan Assessment & Plan (1) Cognitive disorder: Code(s): F09 - Unspecified mental disorder due to known physiological condition Category: Medical (2) YUMIKO on CPAP: Code(s): G47.33 - Obstructive sleep apnea (adult) (pediatric) Category: Medical Plan MRI brain results discussed - seen by neurosurgery . continue lexapro 40mg qd continue Cognitive therapy Increase physical activity Continue CPAP 5-15 cm and compliance stressed. melatonin 1-3 mgq hs Wear hearing aids consistently Coding Level of Care Code Est Pt Level 4 (70315) Complex EM visit Add On G2211 Diagnoses Cognitive disorder F09 YUMIKO on CPAP G47.33
--- OUTSIDE RECORDS SUMMARY | 2024-12-01 09:52 | XMS_ITS | Continuity of Care Document ---
Author Organization [facility] Address [address] [place] [id number] Care Team Providers Care Bioengineer Name Role Phone Savi Parmar NP Primary Care [id number] Date(s): 10/27/24 - 11/26/[address] [id number] Encounter Type: Triage Allergies, Adverse Reactions, Alerts No Known Allergies Immunizations Given and Recorded Vaccine Date Status Refusal Reason zoster vaccine, inactivated 08/25/24 Recorded zoster vaccine, inactivated 04/02/24 Recorded zoster vaccine, inactivated 01/05/15 Recorded influenza virus vaccine, inactivated 05/26/24 Abraham rded influenza virus vaccine, inactivated 04/26/23 Abraham rded influenza virus vaccine, inactivated 06/04/22 Abraham rded influenza virus vaccine, inactivated 05/05/21 Abraham rded influenza virus vaccine, inactivated 05/05/20 Abraham rded influenza virus vaccine, inactivated 05/09/18 Abraham rded influenza virus vaccine, inactivated 05/27/15 Abraham rded influenza virus vaccine, inactivated 04/19/15 Abraham rded SARS-CoV-2(COVID-19)mRNA-LNP vac([id number]) 05/26/24 Recorded SARS-CoV-2(COVID-19)mRNA-LNP vac([id number]) 07/02/23 Recorded [id number] bivalent booster vax 07/17/22 Recorded SARS-CoV-2 (COVID-19) mRNA-1273 vaccine 07/04/21 R ecorded SARS-CoV-2 (COVID-19) mRNA BNT-162b2 vac 10/13/20 Recorded SARS-CoV-2 (COVID-19) mRNA BNT-162b2 vac 09/20/20 Recorded pneumococcal 13-valent vaccine 07/09/18 Recorded Influenza Virus Vaccine (oldterm) 06/01/17 Recorde d pneumococcal 23-valent vaccine 10/26/16 Recorded diphtheria/tetanus/pertussis, acel(DTaP) 01/10/16 Recorded Medications atorvastatin 40 mg oral tablet 1 tablet, By Mouth, Daily, # 90 tablet, 1 Refills, Maintenance, 06/27/24 4:45:00 PM EST, [facility], 177, cm, 06/27/24 10:21:00 EST, Height, 131, kg, 06/27/24 10:21:00 EST, Dry Weight Start Date: 06/27/24 Status: Ordered Quantity: 90.0 Unit: tablet Repeat number: 1 Colace sodium 100 mg oral capsule 100 mg, 1, capsule, By Mouth, 2 times a day, Refills 0, Maintenance, 07/01/24 9:23:00 AM EST, Partial fill upon patient request if the prescription is for a schedule II opioid drug. Start Date: 07/01/24 Status: Ordered Repeat number: 1 Eliquis 5 mg oral tablet 1 tablet, By Mouth, 2 times a day, # 180 tablet, 3 Refills, Maintenance, 06/17/24 8:59:00 AM EST, [facility]/pharmacy #[id number], 177.8, cm, 06/16/24 13:07:00 EST, Height, 131.5, kg, 06/16/24 13:07:00 EST, Dry Weight Start Date: 06/17/24 Status: Ordered Quantity: 180.0 Unit: tablet Repeat number: 4 escitalopram 20 mg oral tablet 2 tablet, By Mouth, Daily, # 180 tablet, 0 Refills, Maintenance, 07/04/24 9:30:00 AM EST, [facility] 33503, 177, cm, 07/01/24 3:16:00 EST, Height, 131, kg, 06/30/24 20:48:00 EST, Dry Weight Start Date: 07/04/24 Status: Ordered Quantity: 180.0 Unit: tablet Repeat number: 1 furosemide 20 mg oral tablet 1, tablet, By Mouth, Daily, # 90 tablet, Refills 3, Maintenance, 05/05/24 1:42:00 PM EDT, Route to Pharmacy Electronically, [facility] 46969, 177.8, cm, 04/03/24 12:34:00 EDT, Height Start Date: 05/05/24 Status: Ordered Quantity: 90.0 Unit: tablet Repeat number: 1 gabapentin 300 mg oral capsule See Instructions, Take 1 cap on day 1, then 1 cap twice daily on day 2, then 1 cap three times daily on day 34 onwards, # 180 capsule, Refills 1, Tot. Refills 1, Maintenance, 01/03/24 4:40:00 PM EDT, Instructions Replace Required Details, Route to Pharmacy Electronically, [facility]/pharmacy #[id number], Partial fill upon patient request if the prescription is for a schedule II opioid drug., 177.8, cm, 01/02/2415:38:00 EDT, Height Start Date: 01/03/24 Status: Ordered Quantity: 180.0 Unit: capsule Repeat number: 2 lisinopril 2.5 mg oral tablet 1, tablet, By Mouth, Daily, # 90 tablet, Refills 3, Tot. Refills 3, Maintenance, 07/16/24 8:16:00 AM EST, Route to Pharmacy Electronically, [facility]/pharmacy #[id number], 177, cm, 07/09/24 13:14:00 EST, Height,131, kg, 06/30/24 20:48:00 EST, Dry Weight Start Date: 07/16/24 Status: Ordered Quantity: 90.0 Unit: tablet Repeat number: 4 mupirocin 2% topical ointment 1 applicator, Topically, 2 times a day, # 22 Gm, 0 Refills, Maintenance, 11/12/24 11:07:00 AM EDT, [facility]/pharmacy #[id number], Partial fill upon patient request if the prescription is for a schedule II opioiddrug., 1 applicator Topically 2 times a day,x5 days, 177, cm, 11/12/24 9:42:00 EDT, Height, 131, kg, 06/30/24 20:48:00 EST, Dry Weight Start Date: 11/12/24 Stop Date: 11/17/24 Status: Ordered Quantity: 22.0 Unit: g Repeat number: 1 traZODone 50 mg oral tablet See Instructions, TAKE 1 TABLET DAILY AT BEDTIME, # 90 tablet, Refills 1, Maintenance, 10/27/24 12:13:00 PM EDT, Instructions Replace Required Details, Route to Pharmacy Electronically, [facility], 177, cm, 09/29/24 11:16:00 EST, Height, 131, kg, 06/30/24 20:48:00 EST, Dry Weight Start Date: 10/27/24 Status: Ordered Quantity: 90.0 Unit: tablet Repeat number: 1 Problem List Condition Confirmation Course Effective Dates Status H ealth Status Informant Anxiety Confirmed Active Afib Confirmed Active Benign colonic polyp Confirmed Active Presence of cardiac pacemaker Confirmed Active Chronic back pain Confirmed Active Disc degeneration, lumbar Confirmed Active Secondary hypercoagulable state Confirmed Active Hyperlipidemia Confirmed Active Hypertension Confirmed Active Insomnia Confirmed Active Memory impairment Confirmed Active Pacemaker Permanent Placement Confirmed Active Severe obesity Confirmed Active Sick sinus syndrome Confirmed Active Right ankle swelling Confirmed Active Tinnitus Confirmed Active Social History Social History Type Response Smoking Status Former smoker, quit more than 30 days ago entered on: 06/16/24 Sex Sex Representation Male (finding) Patient Care team information Care Team Personnel Name: Savi Parmar NP Position: [facility] PCO Associate Professional Member Role: PCP Address: [address] [place] [address], [address] [place] [id number] Telecom: Name: Melva Grullon RN Position: S RN Member Role: Primary Care Nurse Name: Mary Anne Martin LPN Position: S RN Member Role: Primary Care Nurse Care Team Related Persons Name: FILIBERTO TODD Insurance Providers Guarantor name: AILYN [facility] Information #: 1 Payer: [facility] Member Number: NA Policy Number: NA Group Number: NA
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
--- OUTSIDE RECORDS SUMMARY | 2024-12-01 09:53 | XMS_ITS | Data Portability ---
Author Organization [place] [facility], , [place] Address [address] [place] [address] Assessment Encounter Date Assessment Date Assessment LastModified [...] Lab CMP, serum or plasma 2019 020 [email or web address] [email or web address] [facility] [address], [address], 0 11:01:59 CBC w/ diff 2019 020 gerald [email or web address] [facility], [address], [address], 0 11:01:59 gamma-gluta myl transferase (ggt), serum 2019 020 gerald z339 [facility], [address], [address], 0 11:01:59 hepatic function panel, serum 2019 020 [email or web address], [address], [place] [address], [place], [address], 0 11:02:00 hepatitis A Ab, total, serum 2019 [place] [id number] [facility] [place] [facility], [address], [place] [address], [place], [address], 0 11:02:00 HBsAg (hepatitis B surface Ag), serum 2019 [place] [address] [facility] [place] [facility], [address], [place] [address], [place], [address], 0 11:02:00 PT/INR 2019 [place] [id number] [facility], [address], [place] [address], [place], [address], 0 11:02:00 drug screen, urine 2019 [facility], [address] [place], [address], 0 13:34:11 HIV 1+2 Ab + HIV1 p24 Ag, QL, rapid, immunoassay , serum or plasma or blood 2019 [place] [address] [facility], [address], [place] [address], [place], [address], 0 11:02:00 hepatitis C Ab, serum 2019 020 [place] [address] [facility], [address], [place], [place], [address], 0 11:02:00 Referral None recorded. Procedures None recorded. Surgeries None recorded. Imaging None recorded. Medication Orders None recorded. Patient TargetsNo targets recorded. Patient Instructions Encounter Date Encounter Id Patient Instructions Last Modified By Organization Details Last Modified Time 09/30/2019 [id number] Abstain from opiates for 24 hours unless [...] Agree to not falsify your urine specimens. [email or web address] Not available 09/30/2019 10:28:46 Education provid ed [...] & Drop out prevention in early recovery. [email or web address] Not available 09/30/2019 10:28:46 Reason for Referral None Reported. Results Created Date Observation Date Name Description Value Unit Range Abnormal Flag Note LastModifiedBy Organization Detail LastModifiedTime 09/30/1909/30/2019 drug scree n, urine amphetamine Negati ve 100 Elect kenyatta lakhani d by GRIFFIN SANCHEZ Not Available [facility] [address] [place], [address], 10/01/2019 13:34:11 09/30/19 20 09/30/2019 drug scree n, urine benzodiazepi ne Negati ve 100 Not Available [facility] [address] [place], [address], 10/01/2019 13:34:11 09/30/19 20 09/30/2019 drug scree n, urine buprenorphin e Negati ve 100 abnormal Not Available [place] [address] [place], [address], 10/01/2019 13:34:11 09/30/19 20 09/30/2019 drug scree n, urine cannabinoid Positi ve 100 abnormal Not Available [place] [address] [place], [address], 10/01/2019 13:34:11 09/30/19 20 09/30/2019 drug scree n, urine cocaine metab. Negati ve 100 Not Available [place] [address] [place], [address], 10/01/2019 13:34:11 09/30/19 20 09/30/2019 drug scree n, urine methadone Negati ve 100 Not Available [place] [address] [place], [address], 10/01/2019 13:34:11 09/30/19 20 09/30/2019 drug scree n, urine opiates Negati ve 100 Not Available [place] [address] [place], [address], 10/01/2019 13:34:11 09/30/19 20 09/30/2019 drug scree n, urine oxycodone Positi ve 100 abnormal Not Available [place] [address] [place], [address], 10/01/2019 13:34:11 09/30/19 20 09/30/2019 drug scree n, urine ethanol <10, <10 mg/dL <10 Not Available [place] [address] [place], [address], 10/01/2019 13:34:11 09/30/19 20 09/30/2019 drug scree n, urine fentanyl Negati ve 100 Not Available [place] [address] [place], [address], 10/01/2019 13:34:11 09/30/19 20 09/30/2019 drug scree n, urine creatinine 31.8 mg/dL >20 Not Available [facility] [employer], [address], 10/01/2019 13:34:11 09/30/19 20 09/30/2019 drug scree n, urine specific gravity 1.004 1.003- 1.035 Not Available [facility] [place], [address], 10/01/2019 13:34:11 09/30/19 20 09/30/2019 drug scree n, urine pH 8.10 4.5-9. 0 Not Available [place] [address] [place], [address], 10/01/2019 13:34:11 Result Notes None recorded. Procedures Surgical History Date Name Laterality Status Provider Name and Address Organization Details Recorded Time 09/30/2019 [id number], G0480, G0481 completed [employer], 09/30/2019 10:28:46 Imaging Results None recorded. Procedure Notes None recorded. Medical Equipment None Reported. Vitals Date Recorded Body temperature Oxygen saturation Oxygen saturation in Arterial blood by Pulse oximetry Heart rate Systolic blood pressure Diastolic blood pressure Provider Name and Address Organization Details Last Updated DateTime 0 97.7 [degF] 96 % 96 % 60 /min 146 mm[Hg] 82 mm[Hg] [employer] [facility], 0 10:35:42 Social History None recorded. Functional Status None recorded. Mental Status None recorded. Family History Nothing Reported. Medical History No medical history recorded. Past Encounters Encounter ID Performer Location Encounter Start Date Encounter Closed Date Diagnosis/Indication Diagnosis SNOMED-CT Code Diagnosis ICD10 Code Diagnosis Note [id number] Janel Sanchez MD [place] [address] [place] [address] MELONIE HOROWITZ [phone] 09/30/2019 09:42:36 09/30/2019 11:25:23 Opioid dependence 96421281 F11.20 Health Concerns Section Related Observation LastModified by Organization Detai ls LastModified Time None Recorded Concern Status LastModified by Organization Details LastModified Time None Recorded Advance Directives Directive None Recorded Payers Encounter Date Sequence Insurance Name Policy Number Policy Lopez Covered Member ID Lopez Member ID Guarantor Name 09/30/2019 1 [facility] [employer] [facility] ([employer]) [id number] Angel Alberts [id number] Angel Alberts Notes Date Note Type Note [...] treatment program(s): {{Y N*}} Janel Sanchez MD [address] [place] [address], [id number], [facility] [employer], 09/30/2019 11:31:22
--- OUTSIDE RECORDS SUMMARY | 2024-12-01 09:53 | XMS_ITS | Encounter Summary ---
Author Organization [facility] Address [address] [place] [address] Care Team Providers Care 3D Artist Name Role Phone Romel Ware MD Primary Care Provider [phone] Pcp, No Unavailable Unavailable Pricilla Rucker LCSW Unavailable [phone] Shasta Patel MD Unavailable [phone] Encounter Details Date Type Department Care Team (Late st Contact Info) Description 10/28/2024 10:43 AM EDT Hospital Encounter [facility] [address] [place] [phone] Brandon García MD [address] [place] [address] Social History Tobacco Use Types Packs/Day Years [...] Orientation Heterosexual (straight) 02/27 3:03 AM EDT documented as of this encounter Plan of Treatment Not on file documented as of this encounter Procedures Procedure Name Priority Date/Time Associated Diagnosis Comments XR TIBIA/FIBULA 2 VIEWS-RIGHT STAT 10/28/2024 10:53 AM EDT Pain in right lower leg documented in this encounter Results * XR Tibia/fibula 2 views-Right (10/28/2024 [...] soft tissue swelling, without acute osseous abnormality. us Drake Borja IICHRISTOPHER [facility] DIAGNOSTIC IMAGING ORDERABLES Final Result documented in this encounter Visit Diagnoses Not on filedocumented in this encounter Care Teams 3D Artist Relationship Specialty Start Date End Date Romel Ware MD [address] [address] PCP - General 12/25/22 Pcp, [address] [address] 12/25/22 Pricilla Rucker LAMINATION ASSEMBLER [address] [facility] [place] [address] Pipe Fittings Molder Clinical Social Work 04/17/19 Shasta Patel MD [address] [place] [phone] Psychiatry, General 04/21/19 documented as of this encounter
--- OUTSIDE RECORDS SUMMARY | 2024-12-01 09:53 | XMS_ITS | Encounter Summary ---
Author Organization [facility] Address [address] [place] [address] Care Team Providers Care Wildlife Policy Professional Name Role Phone Romel Ware MD Primary Care Provider [phone] Pcp, No Unavailable Unavailable Pricilla Rucker LCSW Unavailable [phone] Shasta Patel MD Unavailable [phone] Encounter Details Date Type Department Care Team (Late st Contact Info) Description 10/28/2024 Scanned Document [facility] 80 [facility] [address] [facility] [place] [address] Provider, Generic Social History Tobacco Use Types Packs/Day Years [...] on file documented as of this encounter Visit Diagnoses Not on filedocumented in this encounter Care Teams Wildlife Policy Professional Relationship Specialty Start Date End Date Romel Ware MD [address] [address] PCP - General 12/25/22 Pcp, No [address] [place] [address] 12/25/22 Pricilla Rucker LCSW [address] [facility] [place] [address] Inventory Control/Shipping Receiving Clinical Social Work 04/17/19 Shasta Patel MD [address] [place] [address] Psychiatry, General 04/21/19 documented as of this encounter
--- OUTSIDE RECORDS SUMMARY | 2024-12-01 09:53 | XMS_ITS | Continuity of Care Document ---
Author Organization [facility] Address [address] [place] [id number]- Care Team Providers Care Manager Insurance Name Role Phone Savi Parmar NP Primary Care Physician Encounter [facility] Date(s): 10/27/24 - 11/26/[address] [address] Encounter Type: Triage Allergies, Adverse Reactions, Alerts [...] virus vaccine, inactivated 04/19/15 Abraham rded SARS-CoV-2(COVID-19)mRNA-LNP vac([id number]) 05/26/24 Recorded SARS-CoV-2(COVID-19)mRNA-LNP vac([id number]) 07/02/23 Recorded [id number] bivalent booster vax 07/17/22 Recorded SARS-CoV-2 (COVID-19) [...] 1 Refills, Maintenance, 06/27/24 4:45:00 PM EST, [id number], 177, cm, 06/27/24 10:21:00 EST, Height, 131, [...] 3 Refills, Maintenance, 06/17/24 8:59:00 AM EST, [facility]/pharmacy #[id number], 177.8, cm, 06/16/24 13:07:00 EST, Height, 131.5, kg, 06/16/24 13:07:00 EST, Dry Weight Start Date: 06/17/24 Status: Ordered Quantity: 180.0 Unit: tablet Repeat number: 4 escitalopram 20 mg oral tablet 2 tablet, By Mouth, Daily, # 180 tablet, 0 Refills, Maintenance, 07/04/24 9:30:00 AM EST, [id number], 177, cm, 07/01/24 3:16:00 EST, Height, 131, kg, 06/30/24 20:48:00 EST, Dry Weight Start Date: 07/04/24 Status: Ordered Quantity: 180.0 Unit: tablet Repeat number: 1 furosemide 20 mg oral tablet 1, tablet, By Mouth, Daily, # 90 tablet, Refills 3, Maintenance, 05/05/24 1:42:00 PM EDT, Route to Pharmacy Electronically, [facility] [id number], 177.8, cm, 04/03/24 12:34:00 EDT, Height Start [...] Replace Required Details, Route to Pharmacy Electronically, [facility]/pharmacy #[id number], Partial fill upon patient request if the prescription is for a schedule II opioid drug., 177.8, cm, 01/02/2415:38:00 EDT, Height Start Date: 01/03/24 Status: Ordered Quantity: 180.0 Unit: capsule Repeat number: 2 lisinopril 2.5 mg oral tablet 1, tablet, By Mouth, Daily, # 90 tablet, Refills 3, Tot. Refills 3, Maintenance, 07/16/24 8:16:00 AM EST, Route to Pharmacy Electronically, [facility]/pharmacy #[id number], 177, cm, 07/09/24 13:14:00 EST, Height,131, kg, 06/30/24 20:48:00 EST, Dry Weight Start Date: 07/16/24 Status: Ordered Quantity: 90.0 Unit: tablet Repeat number: 4 mupirocin 2% topical ointment 1 applicator, Topically, 2 times a day, # 22 Gm, 0 Refills, Maintenance, 11/12/24 11:07:00 AM EDT, [facility]/pharmacy #[id number], Partial fill upon patient request if [...] Details, Route to Pharmacy Electronically, [id number], 177, cm, 09/29/24 11:16:00 EST, Height, 131, [...] Team Personnel Name: Savi Parmar NP Position: [facility] PCO Associate Professional Member Role: PCP Address: [address] [place] [address], [address] [place] [address] [id number] Telecom: Name: Melva Grullon RN Position: S RN Member Role: Primary Care Nurse Name: Mary Anne Martin LPN Position: S RN Member Role: Primary Care Nurse Care Team Related Persons Name: FILIBERTO TODD Insurance Providers Guarantor name: AILYN [facility] Information #: 1 Payer: [facility] Member Number: NA Policy Number: NA Group Number: NA
--- OUTSIDE RECORDS SUMMARY | 2024-12-01 09:53 | XMS_ITS | Encounter Summary ---
Author Organization [facility] Address [address] [place] [address] Care Team Providers Care Counseling Specialist Name Role Phone Romel Ware MD Primary Care Provider [phone] Pcp, No Unavailable Unavailable Pricilla Rucker LCSW Unavailable [phone] Shasta Patel MD Unavailable [phone] Encounter Details Date Type Department Care Team (Late st Contact Info) Description 10/28/2024 Scanned Document [facility] 80 [facility] [address] [facility] [place] [address] Provider, Generic Social History Tobacco [...] on filedocumented in this encounter Care Teams Counseling Specialist Relationship Specialty Start Date End Date Romel Ware MD [address] [address] PCP - General 12/25/22 Pcp, No [address] [place] [address] 12/25/22 Pricilla Rucker LCSW [address] [facility] [place] [address] Train Inspector Clinical Social Work 04/17/19 Shasta Patel MD [address] [place] [address] Psychiatry, General 04/21/19 documented as of this encounter
== END 2024-12-01 09:39 | disposition home or self-care (01) ==
LOC: HO.HSMS 09:12
PROVIDERS: PCP Internal Medicine; Visit Provider Psychiatry & Neurology Neurology
DX: R41.89 Other symptoms and signs involving cognitive functions and awareness (principal); G47.33 Obstructive sleep apnea (adult) (pediatric)
CPT/HCPCS: 99214

== ENCOUNTER → 2024-12-01 09:11 | Outpatient (BNVA) | payer OTHER, SELFPAY | PROVIDERS: PCP Internal Medicine; Visit Provider Psychiatry & Neurology Neurology | DX: G47.33 Obstructive sleep apnea (adult) (pediatric) (principal); F09 Unspecified mental disorder due to known physiological condition ==